=== PATIENT | male | born 1980 | race Caucasian/White ===

== ENCOUNTER 2017-12-26 21:58 | Inpatient (IN) | payer OTHER ==
[~2017-12-26] VITALS: Ht 182.9 cm; Wt 114.0 kg
[2017-12-26] MEDS ORDERED: SODIUM CHLORIDE 0.9% 1000ML 1,000 ML IV STA (22:35)
[2017-12-26] MEDS ORDERED: CEFTRIAXONE SOD INJ 2,000 MG in DEXTROSE 5% 50ML 50 ML IV STA (22:35)
[2017-12-26] MEDS ORDERED: PHEN-582 PO (22:49)
[2017-12-26] MEDS ORDERED: [UNRECOGNIZED DRUG - OTHER] PO (22:51)
--- NOTE | 2017-12-26 22:51 | DIAGNOSTIC IMAGING REPORT ---
HEAD WITHOUT CONTRAST (CT) CLINICAL HISTORY: 37 years-old Male presenting with eval for altered loc. TECHNIQUE: Multidetector CT imaging of the head was performed without the use of intravenous contrast. IV contrast: None. A dose lowering technique was used consistent with the principles of ALARA (as low as reasonably achievable). COMPARISON: None. CT DOSE (mGy.cm): The estimated cumulative dose is 741.55 mGycm. FINDINGS: Supervisor Quality Control topogram: Unremarkable. Ventricles and sulci normal in size. Brain parenchyma normal in appearance with preserved pelaez-white differentiation. No mass effect or midline shift. No hemorrhage or acute territorial infarct. No extra-axial fluid collection. Paranasal sinuses and mastoid air cells clear. Calvarium intact. IMPRESSION: 1. No acute intracranial abnormality. Electronically signed by: Amandeep Becerra M.D. 12/26/2017 10:49 PM Dictated Date/Time: 12/26/2017 10:48 PM
[2017-12-26] MEDS ORDERED: ALLO100T PO (22:54)
[2017-12-26 23:11] LABS: BASO % 0.3 %; BASO ABS # 0.02 K/uL (0-0.2); EOS % 0.3 %; EOS ABS # 0.02 K/uL (0-0.5); HEMATOCRIT 48.1 % (42-52); HEMOGLOBIN 17.6 g/dL (14.0-18.0); IG# 0.01 K/uL (0.00-0.02); LYMPH % 25.3 %; MEAN CELL VOLUME 88.1 fL (80-100); MEAN CORPUSCULAR HEMOGLOBIN 32.2 pg (25-34); MEAN CORPUSCULAR HGB CONC 36.6 g/dl (32-36); MEAN PLATELET VOLUME 10.7 fL (7.4-10.4); MONO % 6.1 %; MONO ABS # 0.48 K/uL (0.11-0.59); NEUT % 67.9 %; NEUT ABS # 5.36 K/uL (1.4-6.5); PLATELET COUNT 223 K/uL (130-400); RED CELL DISTRIBUTION WIDTH CV 12.3 % (11.5-14.5); WHITE BLOOD COUNT 7.89 K/uL (4.8-10.8)
[2017-12-26 23:17] LABS: BLOOD UREA NITROGEN 13 mg/dl (7-18); CALCIUM 9.6 mg/dl (8.5-10.1); CARBON DIOXIDE 25 mmol/L (21-32); CREATININE 1.29 mg/dl (0.60-1.40); GLUCOSE 122 mg/dl (70-99); POTASSIUM 3.7 mmol/L (3.5-5.1); SODIUM 136 mmol/L (136-145)
[2017-12-26 23:21] LABS: ALKALINE PHOSPHATASE 77 U/L (45-117); ALT/SGPT 130 U/L (12-78); AST/SGOT 76 U/L (15-37); TOTAL PROTEIN 9.7 gm/dl (6.4-8.2)
[2017-12-26 23:24] LABS: PTT PATIENT 27.7 SECONDS (21.0-31.0)
[2017-12-26] MEDS ORDERED: ACYCLOVIR SOD IV STA (23:27)
[2017-12-26] MEDS ORDERED: DEXTROSE 5% IV STA (23:27)
--- NOTE | 2017-12-26 23:29 | EMERGENCY ROOM VISIT NOTE ---
History Report prepared by Rhonda: Danika White Under the Supervision of: Dr. Joe Briscoe M.D. First contact with patient: 22:25 Chief Complaint: ALTERED MENTAL STATUS Stated Complaint: ALTERED MENTAL STATUS Nursing Triage Summary: pt arrives via ALS for altered mental status his arrives home to find him in the bathtub trying to put his kids clothes on per patient was diagnosed with the flu last week and he has been taking tylenol cold and flu all week long pt states name and birthday correctly, starts to slur words after that states "my birthday [birth year] "It's " pt reports no pain, pt unable to identify objects on stroke picture board makes nonsensical statements History of Present Illness The patient is a 37 year old male who presents to the Emergency Room with complaints of an episode of altered mental status starting today. The patient's states that she found him lying in their daughter's bed when she got home from work 3 hours ago. She reports that he was not like this yesterday or this morning. She states that he has been sick with the flu for a week. She states that he has had a fever, cough, and been weak. She states that she is unsure if he had a fever today, but states that he did yesterday. She notes that he has been taking over the counter Tylenol cold and flu. The notes that his face seems different. She reports that his eyes seem off. The patient denies falling , having a headache, and neck pain. Source of History: spouse/significant other Onset: today Position: other (global) Quality: other (altered) Timing: other (episode) Associated Symptoms: + fevers, + cough, + weakness, No headache, No neck pain Note: The patient's complains of the patient's face and eyes being off. Review of Systems See HPI for pertinent positives & negatives. A total of 10 systems reviewed and were otherwise negative. Past Medical & Surgical Medical Problems: (1) Gout Old medical records were reviewed. Nurse's notes were reviewed and I agree with. Family History Diabetes mellitus Social History Smoking Status: Never Smoker Drug Use: none Marital Status: Housing Status: lives with family Occupation Status: employed Current/Historical Medications Scheduled Allopurinol (Zyloprim), 100 MG PO DAILY Miscellaneous Medications [id number]-[id number] W/ Apap (Tylenol Cold & Flu Severe), Unknown Dose PO Allergies Uncoded Allergies: PCN (Allergy, Unknown, allergic reaction, 01/02/13) Physical Exam Vital Signs Date Time Temp Pulse Resp B/P (MAP) Pulse Ox O2 Delivery O2 Flow Rate FiO2 12/27/17 02:33 113 12/27/17 01:55 37.7 114 20 153/96 95 Room Air 12/27/17 01:10 112 20 133/106 94 Room Air 12/27/17 00:00 143/95 97 Room Air 12/26/17 23:55 108 24 12/26/17 23:30 150/101 12/26/17 23:14 161/96 12/26/17 22:55 121 19 96 12/26/17 22:55 113 16 153/114 97 Room Air 12/26/17 22:36 113 12/26/17 22:34 118 16 146/101 96 Room Air 12/26/17 22:25 113 12/26/17 22:02 37.0 105 16 152/104 98 Room Air Physical Exam General: Non-ill appearing young male in no acute distress. When he talks he answers some questions appropriately, but others are nonsensical. Has some aphasia. HEENT: Normal cephalic atraumatic. Pupils are equal round and reactive to light. Extraocular movements are intact. Oropharynx is pink with moist mucous membranes. No swelling of the mouth lips or tongue. Neck: Supple with a midline trachea. No meningeal signs or stiffness, no JVD or bruits. No Stridor. Chest: Clear to auscultation bilaterally. No wheezes or rhonchi. No increased work of breathing. Heart: regular rate and rhythm. Abdomen: Soft nontender, nondistended without rebound guarding or rigidity. Extremities: No cyanosis clubbing or edema. No calf tenderness or assymetry Spine/Back. Non tender to palpation. No CVA tenderness Skin: Good turgor without rashes. Neurologic exam: Cranial nerves two through 12 are intact. Motor and sensation are intact and symmetrical throughout. Negative Kernig and Brudzinski signs. Medical Decision & Procedures ER Provider Diagnostic Interpretation: Radiology results as stated below per my review and radiologist interpretation: HEAD WITHOUT CONTRAST (CT) CLINICAL HISTORY: 37 years-old Male presenting with eval for altered loc. TECHNIQUE: Multidetector CT imaging of the head was performed without the use of intravenous contrast. IV contrast: None. A dose lowering technique was used consistent with the principles of ALARA (as low as reasonably achievable). COMPARISON: None. CT DOSE (mGy.cm): The estimated cumulative dose is 741.55 mGycm. FINDINGS: Worker'S Compensation Claims Examiner topogram: Unremarkable. Ventricles and sulci normal in size. Brain parenchyma normal in appearance with preserved pelaez-white differentiation. No mass effect or midline shift. No hemorrhage or acute territorial infarct. No extra-axial fluid collection. Paranasal sinuses and mastoid air cells clear. Calvarium intact. IMPRESSION: 1. No acute intracranial abnormality. Electronically signed by: Amandeep Becerra M.D. 12/26/2017 10:49 PM Dictated Date/Time: 12/26/2017 10:48 PM CHEST X-RAY: The results were interpreted by me. Cardiomegaly. Poor inspiratory effort. No definite infiltrate. No definite CHF. Laboratory Results 12/26/17 21:33 Red Blood Count 5.46, Mean Corpuscular Volume 88.1, Mean Corpuscular Hemoglobin 32.2, Mean Corpuscular Hemoglobin Concent 36.6, Mean Platelet Volume 10.7, Neutrophils (%) (Auto) 67.9, Lymphocytes (%) (Auto) 25.3, Monocytes (%) (Auto) 6.1, Eosinophils (%) (Auto) 0.3, Basophils (%) (Auto) 0.3, Neutrophils # (Auto) 5.36, Lymphocytes # (Auto) 2.00, Monocytes # (Auto) 0.48, Eosinophils # (Auto) 0.02, Basophils # (Auto) 0.02 12/26/17 21:33 Test 12/26/17 21:33 12/26/17 22:35 12/26/17 22:58 12/26/17 22:59 White Blood Count 7.89 K/uL (4.8-10.8) Red Blood Count 5.46 M/uL (4.7-6.1) Hemoglobin 17.6 g/dL (14.0-18.0) Hematocrit 48.1 % (42-52) Mean Corpuscular Volume 88.1 fL (80-100) Mean Corpuscular Hemoglobin 32.2 pg (25-34) Mean Corpuscular Hemoglobin Concent 36.6 g/dl (32-36) Platelet Count 223 K/uL (130-400) Mean Platelet Volume 10.7 fL (7.4-10.4) Neutrophils (%) (Auto) 67.9 % Lymphocytes (%) (Auto) 25.3 % Monocytes (%) (Auto) 6.1 % Eosinophils (%) (Auto) 0.3 % Basophils (%) (Auto) 0.3 % Neutrophils # (Auto) 5.36 K/uL (1.4-6.5) Lymphocytes # (Auto) 2.00 K/uL (1.2-3.4) Monocytes # (Auto) 0.48 K/uL (0.11-0.59) Eosinophils # (Auto) 0.02 K/uL (0-0.5) Basophils # (Auto) 0.02 K/uL (0-0.2) RDW Standard Deviation 39.0 fL (36.4-46.3) RDW Coefficient of Variation 12.3 % (11.5-14.5) Immature Granulocyte % (Auto) 0.1 % Immature Granulocyte # (Auto) 0.01 K/uL (0.00-0.02) Prothrombin Time 10.8 SECONDS (9.0-12.0) Prothromb Time International Ratio 1.0 (0.9-1.1) Activated Partial Thromboplast Time 27.7 SECONDS (21.0-31.0) Partial Thromboplastin Ratio 1.1 Anion Gap 9.0 mmol/L (3-11) Est Creatinine Clear Calc Drug Dose 93.0 ml/min Estimated GFR () 82.1 Estimated GFR (Non- 70.9 BUN/Creatinine Ratio 9.8 (10-20) Calcium Level 9.6 mg/dl (8.5-10.1) Total Bilirubin 1.5 mg/dl (0.2-1) Direct Bilirubin 0.2 mg/dl (0-0.2) Aspartate Amino Transf (AST/SGOT) 76 U/L (15-37) Alanine Aminotransferase (ALT/SGPT) 130 U/L (12-78) Alkaline Phosphatase 77 U/L (45-117) Total Creatine Kinase 109 U/L (39-308) Creatine Kinase MB < 0.5 ng/ml (0.5-3.6) Total Protein 9.7 gm/dl (6.4-8.2) Albumin 4.4 gm/dl (3.4-5.0) Lipase 146 U/L (73-393) Salicylates Level < 1.7 mg/dl (2.8-20) Acetaminophen Level < 2 ug/ml (10-30) Creatine Kinase MB Ratio (0-3.0) Influenza Type A Antigen Neg for Influ A (NEG) Influenza Type B Antigen Neg for Influ B (NEG) Bedside Glucose 110 mg/dl (70-99) Ethyl Alcohol mg/dL < 3.0 mg/dl (0-3) Test 12/26/17 23:00 12/26/17 23:17 Bedside Lactic Acid Venous 1.84 mmol/L (0.90-1.70) Bedside Troponin I < 0.030 ng/ml (0-0.045) Laboratory studies as stated above per my review. Medications Administered Medications (Trade) Dose Ordered Sig/Angeli Route Start Time Stop Time Status Last Admin Dose Admin Sodium Chloride 1,000 ml @ 999 mls/hr Q1H1M STAT IV 12/26/17 22:35 12/26/17 23:35 DC 12/26/17 23:12 999 MLS/HR Ceftriaxone Sodium 2000 mg/ Dextrose 70 ml @ 100 mls/hr ONE STAT IV 12/26/17 22:35 12/26/17 23:16 DC 12/26/17 23:08 100 MLS/HR Acyclovir Sodium 660 mg/Dextrose 113.2 ml @ 100 mls/hr NOW STAT IV 12/26/17 23:27 12/27/17 00:34 DC 12/26/17 23:46 100 MLS/HR Lorazepam (Ativan Inj) 1 mg NOW STAT IV 12/27/17 00:49 12/27/17 00:50 DC 12/27/17 01:07 1 MG Lorazepam (Ativan Inj) 1 mg NOW STAT IV 12/27/17 01:31 12/27/17 01:32 DC 12/27/17 01:31 1 MG ECG Indication: altered mental status Rate (beats per minute): 121 Rhythm: sinus tachycardia Findings: no acute ischemic change, other (left anterior vesicular block, no prolongation of QT) Comparison ECG Date: no prior available ED Course 2226: Past medical records reviewed. The patient was evaluated in room A9B, and a complete history and physical examination were performed. 2235: Ordered Ceftriaxone Sodium 2000 mg/ Dextrose 70 ml @ 100 mls/hr IV, NSS 1000 ml @ 999 mls/hr IV. 2309: I discussed the patient's case with Dr. Díaz -[place] Neurosurgeon. He is going to evaluate the patient through the telecom. 2327: Acyclovir Sodium 660 mg/ Dextrose 113.2 ml @ 100 mls/hr IV. 0002: I spoke to Dr. Díaz and he thinks it is stroke verse some sort of encephalopathy. He wants an MRI first and then LP if need be. 0004: I reevaluated the patient and he is intermittently acting a little better. 0043: I reevaluated the patient and he seemed better, but then would say something strange. 0049: Ordered Ativan Inj 1 mg IV. 0131: Ordered Ativan Inj 1 mg IV. 0132: I reevaluated the patient and I talked to the . They are giving him more Ativan. Medical Decision Differential diagnoses include CVA, encephalitis, meningitis, influenza, herpetic infection, toxicologic, electrolyte abnormality, metabolic abnormality. This patient comes in as described above. He was found by his at 7:30 PM after acting confused. He does not look ill however when he talks he has confusion. He answers yes no questions but when I ask him point questions he gets a lot of them wrong but some of them right. He does have some word finding issues too. He has no other neurologic deficits. He's had flulike symptoms for several days although is afebrile here he did have a fever yesterday. He's been taking [id number] medications. He has no meningeal signs or stiffness. He is moderately hypertensive and tachycardic but afebrile. IV access established blood sugar was checked on route and was normal. Given his symptoms, I did call a stroke alert. My initial concerns for stroke or central neurologic process additionally infectious and toxicologic etiologies. His does not think there was any intentional overdose but it could be related siml-nun-uqelvlo medications. I initially ordered IV Rocephin to cover the possibility of infection and I also ordered IV acyclovir to cover the possibility of a DIRECTOR OF SOCIAL WORK infection from herpes. I did have Dr. Davis, the stroke neurologist evaluate him in the meantime. His white count is not elevated. He has no significant electrode or metabolic abnormality. The CAT scan his head is unremarkable. His Tylenol and aspirin levels are negative. Dr Clifton wants me to get an MRI tonight. I did order MRI with and without contrast. The patient was given Ativan 1 mg prior to this. During my reevaluation, he does answer some questions appropriately but others not. At times, I think he is getting better but it's difficult to say. He would not tolerate the MRI was given additional Ativan 1 mg and brought back over here. I discussed with his . We are going to give him a little more benzodiazepines with Versed and it will be shorter acting. This may be more medication related at times he's picking at things that sometimes cc with dextromethorphan. At this point were still evaluating for central neurologic process or infection as well. The patient will be signed out to Dr. Peña at shift change will follow-up on MRI results and he will likely need to be admitted for further treatment and evaluation. Medication Reconcilliation Current Medication List: was personally reviewed by me Blood Pressure Screening Patient's blood pressure: Elevated blood pressure Blood pressure disposition: Elevated BP felt to be situational Consults Time Called: 2301 Consulting Physician: Dr. Arjun Garduno Neurosurgeon Returned Call: [phone] I discussed the patient's case with Dr. Arjun Garduno Neurosurgeon. He is going to evaluate the patient through the telecom. Impression Primary Impression: Altered mental status Additional Impression: Aphasia Critical Care I have personally spent greater than 60 minutes of critical care time in the direct management of this patient. This includes bedside care, interpretation of diagnostic studies, and testing, discussion with consultants, patient, and family members, and other required patient management activities. This 60 minutes is in excess of all separately billable procedures. Scribe Attestation The scribe's documentation has been prepared under my direction and personally reviewed by me in its entirety. I confirm that the note above accurately reflects all work, treatment, procedures, and medical decision making performed by me. Departure Information Patient Instructions My [facility] Stroke History Time Last Known Well this morning Stroke t-PA Criteria Reviewed Does NOT meet criteria for t-PA Reason t-PA Not Given Treatment not indicated Problem Qualifiers
[2017-12-26 23:35] LABS: ALBUMIN 4.4 gm/dl (3.4-5.0); CKMB < 0.5 ng/ml (0.5-3.6); LIPASE 146 U/L (73-393)
[2017-12-26 23:46] LABS: INFLUENZA B ANTIGEN Neg for Influ B (NEG)
[2017-12-27] MEDS ORDERED: LORAZEPAM 2 MG/ML 1 ML VIAL IV STA ×2 (00:49→01:31)
[2017-12-27] MEDS ORDERED: MIDAZOLAM HCL 1 MG/ML 2ML VIAL IV STA (02:07)
[2017-12-27 05:13] LABS: INFLUENZA A PCR Neg for Influ A (NEG); INFLUENZA B PCR Neg for Influ B (NEG)
[2017-12-27] MEDS ORDERED: ONDANSETRON INJ 2 MG/ML 2 ML VIAL IV PRN (06:00)
[2017-12-27] MEDS ORDERED: PHARMACIST DISCHARGE MED REC CONSULT PRN (06:00)
[2017-12-27] MEDS ORDERED: VANCOMYCIN INJ 2,500 MG in SODIUM CHLORIDE 0.9% 500ML 500 ML IV STA (06:14)
--- NOTE | 2017-12-27 06:31 | History and Physical ---
History & Physical Date & Time of Service: Dec 27, 2017 at 06:09 Chief Complaint: Altered Mental Status Primary Care Physician: Shorty Be M.D.(LUZ) History of Present Illness Source: patient, clinic records, hospital records 37 yo M with AMS presents with who told ER staff that he was acting funny and she knows he was taking Tylenol Cold And flu for a recent cold. The states that she efound him lying in hteir daughter's bed when she got home from work. She states that he was sick with the flu for the last week but that he was normal yesterdya. She reported weakness, fever and cough. She reported to staff that he had no falls at home, no headache and no neck pain. The patient was more calm when I saw him after some Ativan and Versed in preparation for an MRI that was unsuccessful. He was unable to get a history from because of altered mental status and inability to follow instruction. When the patient arrived in the ER he wsa thought to have some expressive aphasia so a stroke alert was called by the ER staff. A CT head was negative for acute IC abnormality. Labwork revealed a mild LUZ ELENA wtih creat around 1.4 and baseline around 0.9. No TPA was indicated per the Neurologist, however, he was sent for an MRI that was unable to be completed because the patient was too combative and agitated. With the personality changes, there was some concern for possible encephalitis, however, the ER providers were more convinced this was similar to a dextromethorphan overdose. Empiric coverage with Acyclovir and Ceftriaxone was started in the ER. Past Medical/Surgical History Medical Problems: (1) Gout Status: Chronic (2) BARB (obstructive sleep apnea) Status: Chronic Family History Diabetes mellitus Family history was reviewed from the records as the patient was unable to give this information 2/2 AMS. Social History Socail history was reviewed from the records as the patient was unable to give this information 2/2 AMS. Smoking Status: Never Smoker Smokeless Tobacco Use: Unknown Alcohol Use: Drug Use: none Marital Status: Occupational Status: employed Immunizations History of Influenza Vaccine: No History of Tetanus Vaccine?: Yes Tetanus Immunization Date: Feb 01, 2011 History of Pneumococcal: No History of Hepatitis B Vaccine: Yes Hepatitis Immunization Date: Apr 29, 1977 Multi-Drug Resistant Organisms History of MDRO: No Allergies Uncoded Allergies: PCN (Allergy, Unknown, allergic reaction, 01/02/13) Home Medications Scheduled Allopurinol (Zyloprim), 100 MG PO DAILY Miscellaneous Medications [id number]-Pq W/ Apap (Tylenol Cold & Flu Severe), Unknown Dose PO Review of Systems ROS was unable to be obtained as the patient was unable to give this information 12/20 AMS. Physical Exam Vital Signs Date Time Temp Pulse Resp B/P (MAP) Pulse Ox O2 Delivery O2 Flow Rate FiO2 12/27/17 04:34 112 18 128/89 94 Room Air 12/27/17 03:18 109 22 135/105 96 Room Air 12/27/17 03:05 114 95 Room Air 12/27/17 03:00 107 24 94 Room Air 12/27/17 02:40 118 20 95 Room Air 12/27/17 02:35 107 12/27/17 02:33 113 12/27/17 02:01 141/102 12/27/17 01:55 37.7 114 20 153/96 95 Room Air 12/27/17 01:54 153/96 12/27/17 01:10 112 20 133/106 94 Room Air 12/27/17 01:07 133/106 12/27/17 01:00 157/117 12/27/17 00:35 114 34 95 12/27/17 00:30 146/108 12/27/17 00:05 111 27 12/27/17 00:00 143/95 97 Room Air 12/26/17 23:55 108 24 12/26/17 23:30 150/101 12/26/17 23:14 161/96 12/26/17 22:55 121 19 96 12/26/17 22:55 113 16 153/114 97 Room Air 12/26/17 22:36 113 12/26/17 22:34 118 16 146/101 96 Room Air 12/26/17 22:25 113 12/26/17 22:02 37.0 105 16 152/104 98 Room Air General Appearance: no apparent distress, + obese, + pertinent finding (very limited physical as patient unable to follow instruction. ) Head: normocephalic, atraumatic Eyes: normal inspection, PERRL, sclerae normal ENT: hearing grossly normal, + pertinent finding (pt refused to open mouth) Neck: supple, trachea midline Respiratory/Chest: lungs clear, normal breath sounds, no respiratory distress, no accessory muscle use Cardiovascular: no edema, no gallop, no JVD, no murmur, normal peripheral pulses, + tachycardia Abdomen/GI: normal bowel sounds, non tender, soft Extremities/Musculoskelatal: normal inspection, normal range of motion, + pertinent finding (able to moves arms, legs, hands and feet symmetrically) Neurologic/Psych: alert, + pertinent finding (awake with some word finding difficulty and babbling. Stares ahead and answers questions with answers that don't make sense. Knows name and that he is in the hospital but otherwise is disoriented. Combative.) Skin: normal color, warm/dry Diagnostics Laboratory Results 12/26/17 21:33 Red Blood Count 5.46, Mean Corpuscular Volume 88.1, Mean Corpuscular Hemoglobin 32.2, Mean Corpuscular Hemoglobin Concent 36.6, Mean Platelet Volume 10.7, Neutrophils (%) (Auto) 67.9, Lymphocytes (%) (Auto) 25.3, Monocytes (%) (Auto) 6.1, Eosinophils (%) (Auto) 0.3, Basophils (%) (Auto) 0.3, Neutrophils # (Auto) 5.36, Lymphocytes # (Auto) 2.00, Monocytes # (Auto) 0.48, Eosinophils # (Auto) 0.02, Basophils # (Auto) 0.02 12/26/17 21:33 Test 12/26/17 21:33 12/26/17 22:35 12/26/17 22:48 12/26/17 22:58 White Blood Count 7.89 K/uL (4.8-10.8) Red Blood Count 5.46 M/uL (4.7-6.1) Hemoglobin 17.6 g/dL (14.0-18.0) Hematocrit 48.1 % (42-52) Mean Corpuscular Volume 88.1 fL (80-100) Mean Corpuscular Hemoglobin 32.2 pg (25-34) Mean Corpuscular Hemoglobin Concent 36.6 g/dl (32-36) Platelet Count 223 K/uL (130-400) Mean Platelet Volume 10.7 fL (7.4-10.4) Neutrophils (%) (Auto) 67.9 % Lymphocytes (%) (Auto) 25.3 % Monocytes (%) (Auto) 6.1 % Eosinophils (%) (Auto) 0.3 % Basophils (%) (Auto) 0.3 % Neutrophils # (Auto) 5.36 K/uL (1.4-6.5) Lymphocytes # (Auto) 2.00 K/uL (1.2-3.4) Monocytes # (Auto) 0.48 K/uL (0.11-0.59) Eosinophils # (Auto) 0.02 K/uL (0-0.5) Basophils # (Auto) 0.02 K/uL (0-0.2) RDW Standard Deviation 39.0 fL (36.4-46.3) RDW Coefficient of Variation 12.3 % (11.5-14.5) Immature Granulocyte % (Auto) 0.1 % Immature Granulocyte # (Auto) 0.01 K/uL (0.00-0.02) Prothrombin Time 10.8 SECONDS (9.0-12.0) Prothromb Time International Ratio 1.0 (0.9-1.1) Activated Partial Thromboplast Time 27.7 SECONDS (21.0-31.0) Partial Thromboplastin Ratio 1.1 Anion Gap 9.0 mmol/L (3-11) Est Creatinine Clear Calc Drug Dose 93.0 ml/min Estimated GFR () 82.1 Estimated GFR (Non- 70.9 BUN/Creatinine Ratio 9.8 (10-20) Calcium Level 9.6 mg/dl (8.5-10.1) Total Bilirubin 1.5 mg/dl (0.2-1) Direct Bilirubin 0.2 mg/dl (0-0.2) Aspartate Amino Transf (AST/SGOT) 76 U/L (15-37) Alanine Aminotransferase (ALT/SGPT) 130 U/L (12-78) Alkaline Phosphatase 77 U/L (45-117) Total Creatine Kinase 109 U/L (39-308) Creatine Kinase MB < 0.5 ng/ml (0.5-3.6) Total Protein 9.7 gm/dl (6.4-8.2) Albumin 4.4 gm/dl (3.4-5.0) Lipase 146 U/L (73-393) Salicylates Level < 1.7 mg/dl (2.8-20) Acetaminophen Level < 2 ug/ml (10-30) Creatine Kinase MB Ratio (0-3.0) Influenza Type A (RT-PCR) Neg for Influ A (NEG) Influenza Type B (RT-PCR) Neg for Influ B (NEG) Influenza Type A Antigen Neg for Influ A (NEG) Influenza Type B Antigen Neg for Influ B (NEG) Test 12/26/17 22:59 12/26/17 23:00 12/26/17 23:17 12/27/17 05:42 Bedside Glucose 110 mg/dl (70-99) Ethyl Alcohol mg/dL < 3.0 mg/dl (0-3) Bedside Lactic Acid Venous 1.84 mmol/L (0.90-1.70) Bedside Troponin I < 0.030 ng/ml (0-0.045) Urine Opiates Screen NEG (NEG) Urine Methadone, Qualitative NEG (NEG) Urine Barbiturates NEG (NEG) Urine Phencyclidine (PCP) Level NEG (NEG) Ur Amphetamine/Methamphetamine NEG (NEG) MDMA (Ecstasy) Screen NEG (NEG) Urine Benzodiazepines Screen POS (NEG) Urine Cocaine Metabolite NEG (NEG) Urine Marijuana (THC) NEG (NEG) Date/Time Source Procedure Growth Status 12/26/17 22:59 Blood Blood Culture Pending Received Results Past 24 Hours Test 12/26/17 21:33 12/26/17 22:35 12/26/17 22:48 12/26/17 22:58 Range/Units White Blood Count 7.89 4.8-10.8 K/uL Red Blood Count 5.46 4.7-6.1 M/uL Hemoglobin 17.6 14.0-18.0 g/dL Hematocrit 48.1 42-52 % Mean Corpuscular Volume 88.1 80-100 fL Mean Corpuscular Hemoglobin 32.2 25-34 pg Mean Corpuscular Hemoglobin Concent 36.6 32-36 g/dl Platelet Count 223 130-400 K/uL Mean Platelet Volume 10.7 7.4-10.4 fL Neutrophils (%) (Auto) 67.9 % Lymphocytes (%) (Auto) 25.3 % Monocytes (%) (Auto) 6.1 % Eosinophils (%) (Auto) 0.3 % Basophils (%) (Auto) 0.3 % Neutrophils # (Auto) 5.36 1.4-6.5 K/uL Lymphocytes # (Auto) 2.00 1.2-3.4 K/uL Monocytes # (Auto) 0.48 0.11-0.59 K/uL Eosinophils # (Auto) 0.02 0-0.5 K/uL Basophils # (Auto) 0.02 0-0.2 K/uL RDW Standard Deviation 39.0 36.4-46.3 fL RDW Coefficient of Variation 12.3 11.5-14.5 % Immature Granulocyte % (Auto) 0.1 % Immature Granulocyte # (Auto) 0.01 0.00-0.02 K/uL Prothrombin Time 10.8 9.0-12.0 SECONDS Prothromb Time International Ratio 1.0 0.9-1.1 Activated Partial Thromboplast Time 27.7 21.0-31.0 SECONDS Partial Thromboplastin Ratio 1.1 Sodium Level 136 136-145 mmol/L Potassium Level 3.7 3.5-5.1 mmol/L Chloride Level 102 98-107 mmol/L Carbon Dioxide Level 25 21-32 mmol/L Anion Gap 9.0 3-11 mmol/L Blood Urea Nitrogen 13 7-18 mg/dl Creatinine 1.29 0.60-1.40 mg/dl Est Creatinine Clear Calc Drug Dose 93.0 ml/min Estimated GFR () 82.1 Estimated GFR (Non- 70.9 BUN/Creatinine Ratio 9.8 10-20 Random Glucose 122 70-99 mg/dl Calcium Level 9.6 8.5-10.1 mg/dl Total Bilirubin 1.5 0.2-1 mg/dl Direct Bilirubin 0.2 0-0.2 mg/dl Aspartate Amino Transf (AST/SGOT) 76 15-37 U/L Alanine Aminotransferase (ALT/SGPT) 130 12-78 U/L Alkaline Phosphatase 77 45-117 U/L Total Creatine Kinase 109 39-308 U/L Creatine Kinase MB < 0.5 0.5-3.6 ng/ml Creatine Kinase MB Ratio 0-3.0 Total Protein 9.7 6.4-8.2 gm/dl Albumin 4.4 3.4-5.0 gm/dl Lipase 146 73-393 U/L Salicylates Level < 1.7 2.8-20 mg/dl Acetaminophen Level < 2 10-30 ug/ml Influenza Type A (RT-PCR) Neg for Influ A NEG Influenza Type B (RT-PCR) Neg for Influ B NEG Influenza Type A Antigen Neg for Influ A NEG Influenza Type B Antigen Neg for Influ B NEG Test 12/26/17 22:59 12/26/17 23:00 12/26/17 23:17 12/27/17 05:42 Range/Units Bedside Glucose 110 70-99 mg/dl Ethyl Alcohol mg/dL < 3.0 0-3 mg/dl Bedside Lactic Acid Venous 1.84 0.90-1.70 mmol/L Bedside Troponin I < 0.030 0-0.045 ng/ml Test 12/27/17 06:04 Range/Units Microbiology Results 12/26/17 Blood Culture, Received Pending 12/26/17 Blood Culture, Received Pending Diagnostic Radiology CXR-negative (wet read) HEAD WITHOUT CONTRAST (CT) CLINICAL HISTORY: 37 years-old Male presenting with eval for altered loc. TECHNIQUE: Multidetector CT imaging of the head was performed without the use of intravenous contrast. IV contrast: None. A dose lowering technique was used consistent with the principles of ALARA (as low as reasonably achievable). COMPARISON: None. CT DOSE (mGy.cm): The estimated cumulative dose is 741.55 mGycm. FINDINGS: Oxygen Therapy Technician topogram: Unremarkable. Ventricles and sulci normal in size. Brain parenchyma normal in appearance with preserved pelaez-white differentiation. No mass effect or midline shift. No hemorrhage or acute territorial infarct. No extra-axial fluid collection. Paranasal sinuses and mastoid air cells clear. Calvarium intact. IMPRESSION: 1. No acute intracranial abnormality. EKG tachy, LAFB, no ST changes Impression Assessment and Plan 37 yo otherwise healthy male presents with acute altered mental status today after one week of cold symptoms and taking Tylenol cold and flu consistently 1. AMS-uncertain etiology with causes including but not limited to dextromethorphan overdose, HSV encephalitis or other encephalitis/meningitis, stroke. He is combative and requires benzos and a sitter. Will add statin, ASA and consult Neuro. Will re-attempt MRI when patient is less confused. Cont empiric Ceftriaxone, Vanc and Acyclovir for coverage of encephalitis and meningitis. If pt doesn't improve in the next few hours, would consider LP. Will monitor on telemetry until improved. AM labs could not be obtained // patient's combativeness. Uncertain ETOH use which is another possibility. Drug screen and urine studies are also pending. 2. LUZ ELENA-giving IVF and repeat PRP in am. 3. Gout-holding allopurinol to minimize PO intake. 4. BARB-uncertain if patient is on CPAP. Will need to address with during day shift. DVT proph-SCDs Full Code Dispo-to telemetry DO [facility] Level of Care Telemetry Resuscitation Status FULL RESUSCITATION VTE Prophylaxis VTE Risk Assessment Done? Y/N: Yes Risk Level: Low Given or contraindicated: SCD's
--- NOTE | 2017-12-27 07:22 | DIAGNOSTIC IMAGING REPORT ---
SINGLE VIEW CHEST CLINICAL HISTORY: Atypical chest pain. Change in mental status. FINDINGS: An AP, portable, upright chest radiograph is obtained. No prior studies are available for comparison at the time of dictation. The examination is degraded by portable technique, large body habitus, and patient rotation. The heart is top normal for projection. The pulmonary vasculature is noncongested. The lungs and pleural spaces are clear. No pneumothorax is seen. The bony thorax is grossly intact. IMPRESSION: No acute cardiopulmonary abnormality. Electronically signed by: Robby Espitia M.D. 12/27/2017 7:20 AM Dictated Date/Time: 12/27/2017 7:19 AM
[2017-12-27] MEDS ORDERED: ACYCLOVIR CONSULT ACTIVE PRN (08:37)
[2017-12-27] MEDS ORDERED: CEFTRIAXONE CONSULT PHARMACY PRN (08:45)
[2017-12-27 09:00] VITALS: BP 130/88; PULSE 99; TEMP 37.4; O2SAT 99; Ht 182.9 cm; Wt 114.0 kg
[2017-12-27] MEDS ORDERED: VANCOMYCIN CONSULT ACTIVE PRN (09:00)
[2017-12-27] MEDS ORDERED: DEXTROSE 5% IV SCH (10:00)
[2017-12-27] MEDS ORDERED: ACYCLOVIR SOD IV SCH (10:00)
[2017-12-27] MEDS: ASPIRIN 81 MG ECTAB PO SCH (10:31)
[2017-12-27] MEDS: ATORVASTATIN 40 MG TAB PO SCH (10:32)
[2017-12-27 12:00] VITALS: BP 153/81; PULSE 90; TEMP 37.2; O2SAT 95
[2017-12-27] MEDS: CEFTRIAXONE SOD INJ 2000 MG in DEXTROSE 5% 50ML IV SCH (12:00)
[2017-12-27] MEDS ORDERED: INFLUENZA ADMINISTRATION CHARGE ONE (12:00)
[2017-12-27] MEDS ORDERED: INFLUENZA VIRUS QUAD VACCINE 0.5 ML SYR IM. ONE (12:00)
--- NOTE | 2017-12-27 12:14 | DIAGNOSTIC IMAGING REPORT ---
FLUOROSCOPICALLY GUIDED DIAGNOSTIC LUMBAR PUNCTURE CLINICAL HISTORY: altered mental status, fever, aphasia COMPARISON STUDY: No previous studies for comparison. FINDINGS: Consent was obtained from the patient's . The risks the procedure were explained to the patient and his . The patient was prepped and draped in sterile fashion. The skin was anesthetized with 1% lidocaine. Under fluoroscopic guidance, a lumbar puncture was performed at the L3-4 level utilizing a 20-gauge spinal needle. 8 cc of clear CSF was withdrawn under gravity drip. The fluid was 4 tubes and sent for laboratory analysis as specified by the referring clinician. There were no immediate complications. IMPRESSION: Successful fluoroscopically guided diagnostic lumbar puncture performed at the L3-4 level. 8 cc of clear CSF was withdrawn and sent for laboratory analysis. Electronically signed by: Juan Carlos Nolan M.D. 12/27/2017 12:13 PM Dictated Date/Time: 12/27/2017 12:11 PM
[2017-12-27 12:17] LABS: CSF GLUCOSE 66 mg/dl (40-70); CSF TOTAL PROTEIN 77.8 mg/dl (15.0-45.0)
--- NOTE | 2017-12-27 12:21 | Pharmacy Progress Note ---
Pharmacy Abx Initial Consult Date of Service Dec 27, 2017. Pharmacy Dosing Scope Date of Consult: 12/27/17 Consultation requested by: Dr. Barron Pharmacy is consulted to initiate Vancomycin, Ceftriaxone, and Acyclovir IV dosing therapy, order appropriate labs and adjust drug dose/frequency. Subjective The patient is a 37 year old male admitted on Dec 27, 2017 at 03:44. Objective Height (Feet): 6 Height (Inches): 0.00 Weight (Kilograms): 114.300 Vital Signs (Past 12Hrs) Vital Signs Past 12 Hours Date Time Temp Pulse Resp B/P (MAP) Pulse Ox O2 Delivery O2 Flow Rate FiO2 12/27/17 09:00 37.4 99 20 130/88 99 Room Air 12/27/17 07:42 122 16 134/98 100 Room Air 12/27/17 06:34 115 18 150/97 96 Room Air 12/27/17 04:34 112 18 128/89 94 Room Air 12/27/17 03:18 109 22 135/105 96 Room Air 12/27/17 03:05 114 95 Room Air 12/27/17 03:00 107 24 94 Room Air 12/27/17 02:40 118 20 95 Room Air 12/27/17 02:35 107 12/27/17 02:33 113 12/27/17 02:01 141/102 12/27/17 01:55 37.7 114 20 153/96 95 Room Air 12/27/17 01:54 153/96 12/27/17 01:10 112 20 133/106 94 Room Air 12/27/17 01:07 133/106 12/27/17 01:00 157/117 12/27/17 00:35 114 34 95 12/27/17 00:30 146/108 12/27/17 00:05 111 27 12/27/17 00:00 143/95 97 Room Air Lab Results (24Hrs) Laboratory Tests (24 Hours) Test 12/26/17 21:33 White Blood Count 7.89 K/uL (4.8-10.8) Red Blood Count 5.46 M/uL (4.7-6.1) Hemoglobin 17.6 g/dL (14.0-18.0) Hematocrit 48.1 % (42-52) Mean Corpuscular Volume 88.1 fL (80-100) Mean Corpuscular Hemoglobin 32.2 pg (25-34) Mean Corpuscular Hemoglobin Concent 36.6 g/dl (32-36) H Platelet Count 223 K/uL (130-400) Mean Platelet Volume 10.7 fL (7.4-10.4) H Neutrophils (%) (Auto) 67.9 % Lymphocytes (%) (Auto) 25.3 % Monocytes (%) (Auto) 6.1 % Eosinophils (%) (Auto) 0.3 % Basophils (%) (Auto) 0.3 % Neutrophils # (Auto) 5.36 K/uL (1.4-6.5) Lymphocytes # (Auto) 2.00 K/uL (1.2-3.4) Monocytes # (Auto) 0.48 K/uL (0.11-0.59) Eosinophils # (Auto) 0.02 K/uL (0-0.5) Basophils # (Auto) 0.02 K/uL (0-0.2) Total Creatine Kinase 109 U/L (39-308) Micro Results Date/Time Source Procedure Growth Status 12/26/17 22:59 Blood Blood Culture Pending Received 12/26/17 22:59 Blood Blood Culture Pending Received 12/27/17 11:20 Cerebral Spinal Fluid Gram Stain Pending Received 12/27/17 11:20 Cerebral Spinal Fluid CSF Culture Pending Received Risk Factors for Resistance None identified at this time Assessment & Plan Assessment 37 year old male on empiric IV Vancomycin, Ceftriaxone, and Acyclovir for possible meningitis. * sCr = 1.29 mg/dL, CrCl ~93 mL/min. Estimated pharmacokinetic parameters: * Ke ~0.08/hr, T1/2 ~8.7 hrs * Given his obesity and potential for drug accumulation, need to be cautious with Vancomycin dosing, but still need to be aggressive enough to target therapeutic concentrations. * Patient received Vancomycin 2500mg (~23mg/kg) IV x 1 as a loading dose in the ED * Please note that there was a discrepancy with his height and weight, which explains why he received varying doses of Acyclovir. Plan Vancomycin IV * Maintenance dose: 1500 mg IV (~13 mg/kg) every 10 hours * Goal trough level for meningitis : 15 to 20 mcg/mL * Trough level ordered for 12/28/17 @ 1130 (only prior to 3rd dose and therefore not reflective of steady state, but would like to reassess dosing regimen earlier due to severity of illness and likelihood of drug accumulation in obese patient Acyclovir * 10mg/kg IV q8 target dose, based on *ideal* body weight * Continue Acyclovir 800mg (~10mg/kg) IV q8 Ceftriaxone * Continue Ceftriaxone 2g IV q12; no renal dosing adjustments needed Pharmacy will continue to follow and will adjust dose/frequency as necessary. Thank you.
[2017-12-27] MEDS: SODIUM CHLORIDE 0.9% 1000ML 1,000 ML IV SCH (14:11)
[2017-12-27 14:54] VITALS: BP 149/84; PULSE 90; TEMP 36.8; O2SAT 96
--- NOTE | 2017-12-27 14:56 | Progress Note ---
Progress Note Date of Service Dec 27, 2017. Progress Note ID Consult Dictated # [id number] A/P: 1. Encephalitis -Continue abx, follow cultures -Add HSV PCR to CSF analysis -Continue supportive [id number] -If pt has clinical improvement prior to return of HSV PCR, could complete course with po valtrex to complete 10 days -thank you
[2017-12-27] MEDS: VANCOMYCIN INJ 1,500 MG in SODIUM CHLORIDE 0.9% 500ML 500 ML IV SCH (16:04)
--- NOTE | 2017-12-27 17:14 | NEUROLOGY CONSULTATION ---
DATE OF CONSULTATION: 12/27/2017 Stephon is a 37-year-old white right right-handed man regularly followed by Dr. Shorty Be who suffers from moderate over nourishment, sleep apnea and has had a recent presumptive viral upper respiratory tract infection with fevers, shaking chills, cough, but no particular headache. This has been going on about a week and he has been taking Tylenol Cold and Flu. Last night the patient's returned and found the patient lying in her daughter's bed, which she got home from work and he was confused, had difficulty finding words, did not seem to know where he was and was brought to the Emergency Room. There he had what looked like an expressive aphasia and a stroke alert was called. A CT scan was negative for any significant abnormality with mild dehydration induced renal injury they felt the TPA was not indicated, but because of a viral illness and the fact that this emerged out of that setting, it was suggested he have an MRI because of the possibility of encephalitis or meningitis. Unfortunately he was too combative and agitated and despite attempts to sedate him he could not tolerate the MRI. He was covered with acyclovir and ceftriaxone and this continued. According to the family, he is better than he was, he is less agitated. He is pleasant, but still has a lot of nonsense speech, neologisms, paraphasias, yet he is able to perform simple commands. Knows right and left, can identify his fingers, can count fingers albeit slowly, cannot repeat and can read but has difficulty writing and seems to have a lot of apraxia when I hand him a pen and cannot seem to understand what to do with it. He has had no motor deficits or anything of this type. He has had a lumbar puncture under fluoroscopy which shows an elevated protein, normal glucose and 51 white cells, all of which were lymphocytes. Many laboratory studies are still pending. PAST MEDICAL HISTORY: Again, his past medical history reveals gout which is chronic and obstructive sleep apnea, which he has a mask. Otherwise, he has no significant illnesses and he takes no medications on a regular basis, other than last week when he has been taking Tylenol Cold and Flu with dextromethorphan and some antihistaminics. FAMILY HISTORY: Reveals some diabetes, otherwise unremarkable. SOCIAL HISTORY: Reveals him to be a never smoker, does not use ethanol, he is employed, he is , he has several children. His immunizations are apparently up to date with the exception he did not have an influenza shot this year. He has no known multidrug organisms. ALLERGIES: HE CLAIMS ALLERGIES TO PENICILLIN. The only scheduled medications at home are allopurinol 100 mg daily, and this has not changed. REVIEW OF SYSTEMS: Systems review could not be obtained directly from the patient last night, but according to what I can glean from his and mother today he has been well with the exception of his recent illness, he has had no weight loss, weight gain, fevers, sweats, chills, prior illnesses of a similar type this fall or winter. He has had no new issues referable to the head, eyes, ears, nose and throat, cardiovascular, pulmonary, gastrointestinal, genitourinary, musculoskeletal systems other than the symptoms associated with this presumptive viral illness. On admission the exam revealed him to be confused, a little agitated. Blood pressure 128/89, pulse was 112, respirations were 18. He had no gross cranial deformities. No stiffness of the neck. Eye movements were normal. He was not cooperative with the examiners last night, but is more cooperative with me today within the limits of his language comprehension. Lungs were clear. Heart had a regular rhythm. Extremities were free of edema. Neurologically, all we have is the language disturbance which certainly would fit criteria for am aphasia. He again can read simple phrases, cannot write and will not or cannot repeat, has a number of neologisms and paraphasias, cannot seem to name family members stating "I don't know" when asked who they are. He cannot name my watch. He cannot name a pen and one given the pen does not seem to know what to do it. Facial motility and strength are normal. Facial sensation appears to be normal, extraocular movements are normal. I cannot mushroom picker visual field cut, although when I hold four fingers up he seems to have a little difficulty locating the ones on the right, but this is a pretty soft finding. There is no drift or pronation sign, tremor, tics or choreiform activity. Reflexes are hypoactive throughout. Toes are downgoing. No Apolonia's signs are clearly seen. Strength testing is grossly intact as he was a little more cooperative with me today but sensory examination is unreliable, although I assume it is intact as he seems to withdraw from all noxious stimuli. IMAGING STUDIES: Again have been limited to CAT scan which shows no significant issues. An MRI will be attempted again. Lumbar puncture results are as noted above. His basic laboratory studies again are normal in terms of white count. CSF studies show elevated white count, elevated protein, normal glucose. He has cultures pending. It looks as though testing for influenza A and B thus far is negative. 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 This does not seem to be an influenza related illness, so an alternative viral etiology needs to be postulated and of all the treatable entities he certainly is receiving adequate coverage for herpes simplex. We really need an imaging study to be sure he does not have an atypical disseminated encephalomyelitic picture with multiple areas of white matter change as if this were the picture, treatment might involve the use of plasma exchange and he would have to be sent to a tertiary care center. His family is already considering requesting for a transfer as it is. I put in for infectious disease consult. I would not change the antibiotics at this time as he is receiving coverage for bacterial infections, which I do not think he has, and is receiving what I think is the only reasonable antiviral approach at this point. I will check back with him tomorrow. I am going to see if we can get an EEG just to be sure that there is no evidence for potentially epileptogenic activity going on here or a pattern that would be supportive of potential diagnosis of herpes simplex with periodic lateralized epileptiform discharges. I have discussed the case briefly with Dr. Maharaj today. Again, I will check back with him tomorrow. SUZIE
[2017-12-27] MEDS: ACYCLOVIR SOD INJ 800 MG in DEXTROSE 5% 250ML 250 ML IV SCH (18:02)
[2017-12-27 18:40] VITALS: BP 128/79; PULSE 94; TEMP 36.8; O2SAT 96
--- NOTE | 2017-12-27 18:44 | INFECT. DISEASE CONSULTATION ---
DATE OF CONSULTATION: 12/27/2017 HISTORY OF PRESENT ILLNESS: This is a 37-year-old gentleman who presented to the hospital with a change in mental status. His is present and provides us history. She states that she came home from work yesterday and found him confused in their daughter's bedroom. He recently has been taking [id number] cold medicine for an upper respiratory infection. She states he was having subjective fevers and chills and a dry cough at home. She denies any productive cough or hemoptysis. There was no nasal congestion. She denies him reporting any visual changes, headache or neck stiffness. They have had no recent travel. They do have 2 children at home which all have had recent upper respiratory illnesses. They also have a dog and cat at home. All members are up to date with vaccines. The patient did have a stroke alert in the hospital and is awaiting MRI. He was followed by neurology as well. As part of his workup, an LP was performed this morning which showed 51 white blood cells with 100% lymphocytes and an elevated protein. CSF culture was obtained. Gram stain is negative. Throat culture is pending. Blood cultures are pending as well. The patient had a flu swab which was negative. He was placed on vancomycin, Rocephin and acyclovir empirically. A Lyme titer is pending. CSF Lyme, PCR is pending. West Nile PCR is pending. He appears to be tolerating antibiotics. He is confused but does answer some questions. He is not oriented to place or time. He denies any fevers or chills. He denies any headache. He denies any chest pain. His remaining review of systems is limited, but normal. His speech is currently not slurred. He is moving all extremities without difficulty but is unable to follow commands. His states that this is a marked improvement from arrival to the hospital yesterday. His UDS in the ER was positive for benzos. Alcohol level was negative. PAST MEDICAL HISTORY: Significant for obstructive sleep apnea and gout. FAMILY HISTORY: Noncontributory. SOCIAL HISTORY: Negative for tobacco use, alcohol use or drug use. Again, there is no recent travel. He does have a positive sick contact with other family members with upper respiratory infections recently. ALLERGIES: HE HAS UNKNOWN ALLERGY TO PENICILLIN. MEDICATIONS: Include acyclovir, vancomycin, Rocephin, aspirin, Lipitor, Tylenol and Zofran. PHYSICAL EXAMINATION: VITAL SIGNS: His current temperature is 37.2, he did have a temperature of 37.7 overnight, pulse 90, respiratory rate 18, blood pressure 153/81, oxygen saturation is 95-100% on room air. GENERAL: He is awake but confused. He does answer some questions, but does not answer most questions appropriately. He does not follow commands. He does not appear to be in any acute distress. HEENT: Mucous membranes are moist. There is no nuchal rigidity. HEART: Regular. LUNGS: Clear. ABDOMEN: Soft. There is no edema. SKIN: Without rash. There are multiple tattoos, some of which are new. There is no purulence, erythema, warmth or drainage from the newer tattoos. LABORATORY STUDIES: CBC yesterday reveals a white blood cell count of 7.8, hemoglobin 17.6 and platelets of 223. Chemistry panel in the ER, sodium 136, potassium 3.7, chloride 102, bicarbonate 25, BUN 13, creatinine 1.2, glucose is 122, AST is 76, ALT is 130, total protein is 9.7 and lipase was normal. Lactic acid was 1.8. Urinalysis was unremarkable. UDS was positive for benzos. CSF showed clear colorless fluid with 51 white cells, 100% lymphocytes. Glucose was normal. Protein was elevated at 77.8. West Nile is pending. Lyme PCR is pending. Flu swab was negative. Blood culture and CSF culture are pending. CAT scan of the head in the Emergency Room showed no acute abnormality. A chest x-ray done in the ER was negative as well. ASSESSMENT AND PLAN: Likely encephalitis. However, he will remain on empiric antibiotics pending blood and CSF culture results. He will remain on acyclovir and HSV PCR will be added as I do not see that this was ordered. Additional viral etiologies are pending as well. Supportive care will be continued. Thank you for this consultation.
--- NOTE | 2017-12-27 18:53 | Progress Note ---
Progress Note Date of Service Dec 27, 2017. Progress Note Subjective: Patient seen and examined several times today. His speech is becoming less aphasic. Still having trouble with some recall memory but enunciating better. Patient could not cooperate on afternoon efforts to have him complete brain MRI. Patient agreeable to try again tomorrow Physical Exam General: no acute distress, calm, cooperative on exam Neuro: some aphasia, awake and alert, no motor deficits Heart: regular rate Lungs: CTABL Abdomen: soft, nontender, + bowel sounds Extremities: no edema Plan: Patient found to have evidence of meningitis/encephalitis with elevated WBC in CSF on Lumbar Puncture -continue Vancomycin, Ceftriaxone, Acyclovir, follow up other CSF results -droplet precautions -Aphasia likely from meningitis/encephalitis; no swallowing deficits -No acute intracranial abnormality on admission CT head -neurology service have requested that MRI of head to be completed but patient could not cooperate; will try again tomorrow -neurology may do EEG LUZ ELENA - on IVF and trend GFR Gout - holding allopurinol as there is no acute flare BARB - no active breathing problems, observe DVT ppx Full Code Family: [phone]
[2017-12-27 23:40] VITALS: BP 148/85; PULSE 78; TEMP 37.1; O2SAT 100
[2017-12-28] VITALS (7 sets, daily range): BP systolic 117–144; BP diastolic 72–88; PULSE 75–88; TEMP 36.7–37.5; O2SAT 95–98
[2017-12-28] MEDS: VANCOMYCIN INJ 1,500 MG in SODIUM CHLORIDE 0.9% 500ML 500 ML IV SCH ×3 (01:44→22:01)
[2017-12-28] MEDS: ACYCLOVIR SOD INJ 800 MG in DEXTROSE 5% 250ML 250 ML IV SCH ×3 (01:44→18:29)
[2017-12-28] MEDS: SODIUM CHLORIDE 0.9% 1000ML 1,000 ML IV SCH ×3 (04:10→22:03)
[2017-12-28] MEDS: ASPIRIN 81 MG ECTAB PO SCH (07:36)
[2017-12-28] MEDS: ATORVASTATIN 40 MG TAB PO SCH (07:36)
[2017-12-28 08:02] LABS: BASO % 0.2 %; BASO ABS # 0.01 K/uL (0-0.2); EOS % 1.5 %; HEMATOCRIT 40.2 % (42-52); HEMOGLOBIN 14.6 g/dL (14.0-18.0); IG# 0.03 K/uL (0.00-0.02); LYMPH % 24.1 %; MEAN CORPUSCULAR HEMOGLOBIN 31.9 pg (25-34); MEAN CORPUSCULAR HGB CONC 36.3 g/dl (32-36); MEAN PLATELET VOLUME 10.1 fL (7.4-10.4); MONO % 8.4 %; MONO ABS # 0.56 K/uL (0.11-0.59); NEUT % 65.3 %; NEUT ABS # 4.34 K/uL (1.4-6.5); PLATELET COUNT 172 K/uL (130-400); RED CELL DISTRIBUTION WIDTH CV 12.2 % (11.5-14.5); RED CELL DISTRIBUTION WIDTH SD 38.9 fL (36.4-46.3); WHITE BLOOD COUNT 6.64 K/uL (4.8-10.8)
[2017-12-28 08:23] LABS: CREATININE 1.04 mg/dl (0.60-1.40); POTASSIUM 3.7 mmol/L (3.5-5.1)
[2017-12-28] MEDS: ACETAMINOPHEN 325 MG TAB PO PRN ×3 (10:53→23:57)
[2017-12-28] MEDS ORDERED: VANCOMYCIN TROUGH ONE (11:30)
--- NOTE | 2017-12-28 12:10 | PROGRESS NOTE ---
DATE: 12/28/2017 SUBJECTIVE: Stephon looks much better than he did yesterday. When he is speaking, there is a little hesitancy. He does not have significant word finding, there is no neologisms or paraphasias. He is reading his phone and told me the date, the time, the day of the week, knows his 's name, knows he is in [facility] and his only complaint is that of a headache. He cannot tell me whether this is positional or not as he has been just moved up to the fourth floor from the 2nd, he is sitting in a chair and he says he has not laid down and so he is not clear whether the headache is worse with position change. The complaints are relatively nondramatic, so I do not think this is a post-LP headache but we will see what happens when he reclines. He thinks he could do an MRI today and hopefully will get done. I would like to really look at that left hemispheric area, particularly in his subcortical white matter and the cortex itself to see if there are any areas of inflammation and more importantly where there are multiple areas that would suggest a disseminated encephalomyelitis picture, although the history suggests that this is all coming out of an acute viral syndrome of indeterminate causation with a CSF lymphocytic pleocytosis and elevated protein, normal glucose as he had negative cultures and clinical picture that suggests a focal encephalitis involving the left hemisphere. Whether this is a herpes simplex or another virus is unclear. He is on IV acyclovir plus 2 other antibiotics, although I think the latter probably necessary. I will defer obviously to the infectious diseases expertise on this one. For now, in light of his marked improvement, I do not think we need to consider tertiary care center referral. I will check an EEG on Saturday and hopefully over the weekend will finally get an MRI and we can assess what damage may or may not have been done to his nervous system. I will check with him tomorrow. SUZIE
[2017-12-28] MEDS: CEFTRIAXONE SOD INJ 2000 MG in DEXTROSE 5% 50ML IV SCH ×4 (13:36→23:57)
--- NOTE | 2017-12-28 14:09 | Progress Note ---
Internal Med Progress Note Date of Service: Dec 28, 2017. Provider Documentation: Subjective: Overnight patient was reported to be confused. This AM when examined patient speaking more clearly with some stutter in his speech as the patient describes it. Denies pain. Patient agrees to plan of returning to MRI room today for the MRI brain study Physical Exam General: no acute distress, calm, cooperative on exam Neuro: some stuttering of speech, awake and alert,ambulatory, motor strength intact Heart: regular rate Lungs: CTABL, no wheezing Abdomen: soft, nontender, + bowel sounds Extremities: no edema ASSESSMENT & PLAN: Patient found to have evidence of meningitis/encephalitis with elevated WBC in CSF on Lumbar Puncture which as per neurology is consistent with viral infection rather than bacterial infection -continue Acyclovir -continue Vancomycin, Ceftriaxone for now as patient appears to be making clinical improvements, may continue stopping antibiotics if further resolution of Encephalopathy -Aphasia likely from meningitis/encephalitis; no swallowing deficits -continue droplet precautions -No acute intracranial abnormality on admission CT head -neurology service have requested that MRI of head to be completed but patient could not cooperate yesterday x 2 attempts to get MRi scan; will try again today -neurology may do EEG in the future LUZ ELENA resolved after IV fluids Gout - holding allopurinol as there is no acute flare BARB - no active breathing problems, observe DVT ppx Full Code Family: [phone] Vital Signs: Date Time Temp Pulse Resp B/P (MAP) Pulse Ox O2 Delivery O2 Flow Rate FiO2 12/28/17 14:22 36.7 75 20 117/72 (87) 98 Room Air 12/28/17 11:16 84 95 12/28/17 11:00 37.5 84 22 95 12/28/17 08:00 37.5 84 22 144/88 (106) 95 Room Air 12/28/17 08:00 Room Air 12/28/17 04:00 Room Air 12/28/17 03:34 37.1 88 18 136/85 (102) 96 Room Air 12/28/17 00:00 Room Air 12/27/17 23:40 37.1 78 20 148/85 (106) 100 Room Air 12/27/17 20:00 Room Air 12/27/17 18:40 36.8 94 18 128/79 (95) 96 Room Air 12/27/17 16:00 Room Air 12/27/17 14:54 36.8 90 20 149/84 (105) 96 Room Air Lab Results: Results Past 24 Hours Test 12/28/17 07:23 12/28/17 11:32 Range/Units White Blood Count 6.64 4.8-10.8 K/uL Red Blood Count 4.57 4.7-6.1 M/uL Hemoglobin 14.6 14.0-18.0 g/dL Hematocrit 40.2 42-52 % Mean Corpuscular Volume 88.0 80-100 fL Mean Corpuscular Hemoglobin 31.9 25-34 pg Mean Corpuscular Hemoglobin Concent 36.3 32-36 g/dl Platelet Count 172 130-400 K/uL Mean Platelet Volume 10.1 7.4-10.4 fL Neutrophils (%) (Auto) 65.3 % Lymphocytes (%) (Auto) 24.1 % Monocytes (%) (Auto) 8.4 % Eosinophils (%) (Auto) 1.5 % Basophils (%) (Auto) 0.2 % Neutrophils # (Auto) 4.34 1.4-6.5 K/uL Lymphocytes # (Auto) 1.60 1.2-3.4 K/uL Monocytes # (Auto) 0.56 0.11-0.59 K/uL Eosinophils # (Auto) 0.10 0-0.5 K/uL Basophils # (Auto) 0.01 0-0.2 K/uL RDW Standard Deviation 38.9 36.4-46.3 fL RDW Coefficient of Variation 12.2 11.5-14.5 % Immature Granulocyte % (Auto) 0.5 % Immature Granulocyte # (Auto) 0.03 0.00-0.02 K/uL Sodium Level 138 136-145 mmol/L Potassium Level 3.7 3.5-5.1 mmol/L Chloride Level 104 98-107 mmol/L Carbon Dioxide Level 26 21-32 mmol/L Anion Gap 8.0 3-11 mmol/L Blood Urea Nitrogen 11 7-18 mg/dl Creatinine 1.04 0.60-1.40 mg/dl Est Creatinine Clear Calc Drug Dose 128.0 ml/min Estimated GFR () 106.6 Estimated GFR (Non- 91.9 BUN/Creatinine Ratio 10.7 10-20 Random Glucose 102 70-99 mg/dl Calcium Level 9.0 8.5-10.1 mg/dl Triglycerides Level 124 0-150 mg/dl Cholesterol Level 156 0-200 mg/dl HDL Cholesterol 26 mg/dl LDL Cholesterol, Calculated 105 mg/dl VLDL Cholesterol, Calculated 25 mg/dl Cholesterol/HDL Ratio 6.0 Vancomycin Level Trough 10.6 SEE COMMENT mcg/ml
[2017-12-28] MEDS ORDERED: GADAVIST IV PRN (18:15)
--- NOTE | 2017-12-28 18:17 | DIAGNOSTIC IMAGING REPORT ---
BRAIN COMBO CLINICAL HISTORY: 37 years-old Male presenting with eval for CVA, intracranial process, slurred speech, confusion, sick for one week, headache. TECHNIQUE: Multisequence, multiplanar MR imaging of the brain was performed before and after the administration of intravenous contrast. IV contrast: 11 mL of Gadavist. COMPARISON: CT head from 12/26/2017. FINDINGS: Ventricles and sulci normal in size. Brain parenchyma normal in appearance with preserved pelaez-white differentiation. No mass effect or midline shift. No restricted diffusion to suggest acute ischemia. No hemorrhage. No extra-axial fluid collection. T2 skull base flow voids preserved. No abnormal parenchymal enhancement. Bone marrow signal intensity within the calvarium within normal limits. Thickening of the adenoidal lymphoid tissue along the posterior nasopharynx. IMPRESSION: 1. No acute intracranial pathology. No abnormal enhancement. Electronically signed by: Amandeep Becerra M.D. 12/28/2017 6:16 PM Dictated Date/Time: 12/28/2017 6:11 PM
[2017-12-29] MEDS: ACYCLOVIR SOD INJ 800 MG in DEXTROSE 5% 250ML 250 ML IV SCH ×3 (01:55→18:33)
[2017-12-29] MEDS: VANCOMYCIN INJ 1,500 MG in SODIUM CHLORIDE 0.9% 500ML 500 ML IV SCH ×3 (05:47→20:50)
[2017-12-29 06:57] LABS: BASO % 0.7 %; BASO ABS # 0.04 K/uL (0-0.2); EOS % 2.9 %; EOS ABS # 0.17 K/uL (0-0.5); HEMOGLOBIN 13.4 g/dL (14.0-18.0); IG# 0.03 K/uL (0.00-0.02); LYMPH % 29.3 %; LYMPH ABS # 1.72 K/uL (1.2-3.4); MEAN CELL VOLUME 88.6 fL (80-100); MEAN CORPUSCULAR HEMOGLOBIN 31.2 pg (25-34); MEAN CORPUSCULAR HGB CONC 35.3 g/dl (32-36); MEAN PLATELET VOLUME 10.3 fL (7.4-10.4); MONO % 10.2 %; NEUT % 56.4 %; NEUT ABS # 3.31 K/uL (1.4-6.5); PLATELET COUNT 156 K/uL (130-400); RED CELL DISTRIBUTION WIDTH CV 12.5 % (11.5-14.5); RED CELL DISTRIBUTION WIDTH SD 40.2 fL (36.4-46.3); WHITE BLOOD COUNT 5.87 K/uL (4.8-10.8)
[2017-12-29 07:43] LABS: CALCIUM 8.6 mg/dl (8.5-10.1); CREATININE 1.08 mg/dl (0.60-1.40); POTASSIUM 3.9 mmol/L (3.5-5.1)
[2017-12-29] MEDS: ASPIRIN 81 MG ECTAB PO SCH (07:53)
[2017-12-29] MEDS: ATORVASTATIN 40 MG TAB PO SCH (07:54)
[2017-12-29 08:00] VITALS: O2SAT 95
[2017-12-29 08:17] VITALS: BP 122/81; PULSE 79; TEMP 36.6; O2SAT 95
--- NOTE | 2017-12-29 08:39 | Progress Note ---
Subjective Date of Service: Dec 29, 2017. Subjective cultures negative, afebrile. mri nml. wbc nml. tolerating abx. HSV PCR pending. Problem List Medical Problems: (1) Altered mental status Status: Acute (2) Aphasia Status: Acute Objective Vital Signs Date Time Temp Pulse Resp B/P (MAP) Pulse Ox O2 Delivery O2 Flow Rate FiO2 12/29/17 08:17 36.6 79 20 122/81 (95) 95 Room Air 12/29/17 00:39 CPAP 12/28/17 23:01 36.9 77 17 123/78 (93) 98 CPAP 12/28/17 16:00 Room Air 12/28/17 14:22 36.7 75 20 117/72 (87) 98 Room Air 12/28/17 11:16 84 95 12/28/17 11:15 95 Room Air 12/28/17 11:00 37.5 84 22 95 Laboratory Results Item Value Date Time Gram Stain - Final Resulted 12/27/17 1120 Cerebral Spinal Fluid Blood Culture - Preliminary Resulted 12/26/17 2259 Blood NO GROWTH TO DATE. Blood Culture - Preliminary Resulted 12/26/17 2259 Blood NO GROWTH TO DATE. Last 24 Hours Test 12/28/17 11:32 12/29/17 06:31 Vancomycin Level Trough 10.6 mcg/ml White Blood Count 5.87 K/uL Red Blood Count 4.29 M/uL Hemoglobin 13.4 g/dL Hematocrit 38.0 % Mean Corpuscular Volume 88.6 fL Mean Corpuscular Hemoglobin 31.2 pg Mean Corpuscular Hemoglobin Concent 35.3 g/dl Platelet Count 156 K/uL Mean Platelet Volume 10.3 fL Neutrophils (%) (Auto) 56.4 % Lymphocytes (%) (Auto) 29.3 % Monocytes (%) (Auto) 10.2 % Eosinophils (%) (Auto) 2.9 % Basophils (%) (Auto) 0.7 % Neutrophils # (Auto) 3.31 K/uL Lymphocytes # (Auto) 1.72 K/uL Monocytes # (Auto) 0.60 K/uL Eosinophils # (Auto) 0.17 K/uL Basophils # (Auto) 0.04 K/uL RDW Standard Deviation 40.2 fL RDW Coefficient of Variation 12.5 % Immature Granulocyte % (Auto) 0.5 % Immature Granulocyte # (Auto) 0.03 K/uL Sodium Level 139 mmol/L Potassium Level 3.9 mmol/L Chloride Level 107 mmol/L Carbon Dioxide Level 27 mmol/L Anion Gap 5.0 mmol/L Blood Urea Nitrogen 10 mg/dl Creatinine 1.08 mg/dl Est Creatinine Clear Calc Drug Dose 123.3 ml/min Estimated GFR () 101.8 Estimated GFR (Non- 87.8 BUN/Creatinine Ratio 9.2 Random Glucose 98 mg/dl Calcium Level 8.6 mg/dl Assessment and Plan (1) Encephalitis Assessment & Plan: likely viral, follow cultures. continue therapy for now
[2017-12-29] MEDS: SODIUM CHLORIDE 0.9% 1000ML 1,000 ML IV SCH (09:34)
--- NOTE | 2017-12-29 12:23 | PROGRESS NOTE ---
DATE: 12/29/2017 SUBJECTIVE: Stephon looks great today. According to his mother who is in the room, he is be essentially back to his baseline, they have been texting back and forth. She has not noted any confusion or spelling errors. He is awake, alert, oriented in 3 spheres. His speech is clear with no paraphasic errors, neologisms etc There is no dysarthria. I do not see any tremor, tics, or choreiform activity. Motor strength is normal. Cranial nerves are normal and his overall exam is normal. He still feels subjectively weak and tired. There is a minor low grade headache which is not positional and all of this I think is consistent with the presumptive viral encephalitis. The MRI shows nothing of significance. There are no areas of enhancement, no white matter lesions and an EEG is pending tomorrow. For now, he is still on 3 antimicrobials, one antiviral in the form of acyclovir and vancomycin, ceftriaxone and I am going to defer to infectious disease regarding how long these medications need to be continued. If this is a herpes encephalitis it certainly has run a very benign course as most of the time these forms of encephalitis are severe with necrotic areas in the temporal lobes and a host of clinical deficits. 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 He was tested negative for influenza A and B, but there is a host of adenoviruses and other entities which could have caused a similar problem. We will look at him again tomorrow. Hopefully, the EEG will be available for me to interpret, but unless I see significant abnormalities, I am certainly not going to subject this man to anticonvulsants. SUZIE
[2017-12-29] MEDS ORDERED: VANCOMYCIN TROUGH ONE (13:30)
[2017-12-29] MEDS: CEFTRIAXONE SOD INJ 2000 MG in DEXTROSE 5% 50ML IV SCH ×2 (13:56→23:31)
[2017-12-29] MEDS: ACETAMINOPHEN 325 MG TAB PO PRN ×2 (14:08→23:32)
--- NOTE | 2017-12-29 14:42 | Pharmacy Progress Note ---
Pharmacy Abx Dose Short Note Date of Service Dec 29, 2017. Assessment & Plan Item Value Date Time Vancomycin Level Trough 17.0 mcg/ml 12/29/17 1339 Creatinine 1.08 mg/dl 12/29/17630 Est Creatinine Clear Calc Drug Dose 123.3 ml/min 12/29/17630 Plan ID suggests continuing current therapy for now. Day #3: VANC, Day #4: Ceftriaxone/Acyclovir Vancomycin * Trough level of 17 mcg/mL is therapeutic. * Continue maintenance dose of VANC 1500mg (~13mg/kg) IV every 8 hours * Goal trough level: ~20 mcg/mL * Will recheck VANC trough in 1-3 days if therapy is continued. Rocephin: Continue 2grams IV every 12 hours Acyclovir: 800mg (10mg/kg IBW) IV every 8 hours Pharmacy will continue to follow and will adjust dose/frequency as necessary. Thank you.
[2017-12-29 15:01] VITALS: BP 105/64; PULSE 79; TEMP 36.9; O2SAT 97
--- NOTE | 2017-12-29 15:56 | Progress Note ---
Internal Med Progress Note Date of Service: Dec 29, 2017. Provider Documentation: Subjective: Patient doing well. Has been ambulating and speaking more clearly and more quickly. Physical Exam General: no acute distress, calm, cooperative on exam Neuro: awake and alert and oriented, motor strength intact Heart: regular rate Lungs: CTABL, no wheezing Abdomen: soft, nontender, + bowel sounds Extremities: no edema ASSESSMENT & PLAN: Patient found to have evidence of meningitis/encephalitis with elevated WBC in CSF on Lumbar Puncture which as per neurology and infectious disease consultation that studies are consistent with viral infection rather than bacterial infection -Aphasia likely from encephalitis; no swallowing deficits -as per neurology evaluation it is unclear whether labs will identify definitive viral causes , and suspects nonherpetic viral encephalitis -will continue Acyclovir, Vancomycin, Ceftriaxone for now as patient has made clinical improvements, appreciate infectious disease consult on length and duration of therapies -No acute intracranial abnormality on admission CT head, normal MRI results on -neurology may do EEG on 12/30/17 LUZ ELENA resolved after IV fluids Gout - holding allopurinol as there is no acute flare BARB - no active breathing problems, observe DVT ppx Full Code Family: [phone] Vital Signs: Date Time Temp Pulse Resp B/P (MAP) Pulse Ox O2 Delivery O2 Flow Rate FiO2 12/29/17 15:01 36.9 79 20 105/64 (78) 97 Room Air 12/29/17 08:17 36.6 79 20 122/81 (95) 95 Room Air 12/29/17 08:00 95 Room Air 12/29/17 00:39 CPAP 12/28/17 23:01 36.9 77 17 123/78 (93) 98 CPAP 12/28/17 16:00 Room Air Lab Results: Results Past 24 Hours Test 12/29/17 06:31 12/29/17 13:39 Range/Units White Blood Count 5.87 4.8-10.8 K/uL Red Blood Count 4.29 4.7-6.1 M/uL Hemoglobin 13.4 14.0-18.0 g/dL Hematocrit 38.0 42-52 % Mean Corpuscular Volume 88.6 80-100 fL Mean Corpuscular Hemoglobin 31.2 25-34 pg Mean Corpuscular Hemoglobin Concent 35.3 32-36 g/dl Platelet Count 156 130-400 K/uL Mean Platelet Volume 10.3 7.4-10.4 fL Neutrophils (%) (Auto) 56.4 % Lymphocytes (%) (Auto) 29.3 % Monocytes (%) (Auto) 10.2 % Eosinophils (%) (Auto) 2.9 % Basophils (%) (Auto) 0.7 % Neutrophils # (Auto) 3.31 1.4-6.5 K/uL Lymphocytes # (Auto) 1.72 1.2-3.4 K/uL Monocytes # (Auto) 0.60 0.11-0.59 K/uL Eosinophils # (Auto) 0.17 0-0.5 K/uL Basophils # (Auto) 0.04 0-0.2 K/uL RDW Standard Deviation 40.2 36.4-46.3 fL RDW Coefficient of Variation 12.5 11.5-14.5 % Immature Granulocyte % (Auto) 0.5 % Immature Granulocyte # (Auto) 0.03 0.00-0.02 K/uL Sodium Level 139 136-145 mmol/L Potassium Level 3.9 3.5-5.1 mmol/L Chloride Level 107 98-107 mmol/L Carbon Dioxide Level 27 21-32 mmol/L Anion Gap 5.0 3-11 mmol/L Blood Urea Nitrogen 10 7-18 mg/dl Creatinine 1.08 0.60-1.40 mg/dl Est Creatinine Clear Calc Drug Dose 123.3 ml/min Estimated GFR () 101.8 Estimated GFR (Non- 87.8 BUN/Creatinine Ratio 9.2 10-20 Random Glucose 98 70-99 mg/dl Calcium Level 8.6 8.5-10.1 mg/dl Vancomycin Level Trough 17.0 SEE COMMENT mcg/ml
[2017-12-29 23:28] VITALS: BP 144/87; PULSE 82; TEMP 37.1; O2SAT 97
[2017-12-30] MEDS: SODIUM CHLORIDE 0.9% 1000ML 1,000 ML IV SCH ×3 (01:34→15:58)
[2017-12-30] MEDS: ACYCLOVIR SOD INJ 800 MG in DEXTROSE 5% 250ML 250 ML IV SCH ×2 (01:34→10:00)
[2017-12-30] MEDS: VANCOMYCIN INJ 1,500 MG in SODIUM CHLORIDE 0.9% 500ML 500 ML IV SCH (05:55)
[2017-12-30 07:16] LABS: BASO % 0.2 %; BASO ABS # 0.01 K/uL (0-0.2); EOS % 4.1 %; HEMATOCRIT 37.6 % (42-52); HEMOGLOBIN 13.1 g/dL (14.0-18.0); IG# 0.03 K/uL (0.00-0.02); LYMPH ABS # 1.55 K/uL (1.2-3.4); MEAN CELL VOLUME 88.3 fL (80-100); MEAN CORPUSCULAR HEMOGLOBIN 30.8 pg (25-34); MEAN CORPUSCULAR HGB CONC 34.8 g/dl (32-36); MEAN PLATELET VOLUME 10.3 fL (7.4-10.4); MONO % 9.9 %; MONO ABS # 0.48 K/uL (0.11-0.59); NEUT % 53.2 %; NEUT ABS # 2.58 K/uL (1.4-6.5); PLATELET COUNT 161 K/uL (130-400); RED CELL DISTRIBUTION WIDTH CV 12.3 % (11.5-14.5); RED CELL DISTRIBUTION WIDTH SD 39.4 fL (36.4-46.3); WHITE BLOOD COUNT 4.85 K/uL (4.8-10.8)
[2017-12-30 07:21] VITALS: BP 116/68; PULSE 67; TEMP 36.5; O2SAT 99
[2017-12-30 07:46] LABS: CALCIUM 8.5 mg/dl (8.5-10.1); CREATININE 1.08 mg/dl (0.60-1.40); POTASSIUM 3.8 mmol/L (3.5-5.1)
[2017-12-30] MEDS: ASPIRIN 81 MG ECTAB PO SCH (09:21)
[2017-12-30] MEDS: ATORVASTATIN 40 MG TAB PO SCH (09:21)
--- NOTE | 2017-12-30 10:50 | Progress Note ---
Subjective Date of Service: Dec 30, 2017. Subjective Pt evaluation today including: conversation w/ patient, physical exam, chart review, lab review pt oob to chair. feeling much better. much more appropriate this am. all cultures negative. hsv pcr pending, remains on abx. csf culture negative and final. wbc nml. afebrile. min walker. no neck pain, no sob, still with intermittent dry cough. no visual change. mri nml. all remaining ros reviewed and ar negative. Problem List Medical Problems: (1) Altered mental status Status: Acute (2) Aphasia Status: Acute Objective Vital Signs Date Time Temp Pulse Resp B/P (MAP) Pulse Ox O2 Delivery O2 Flow Rate FiO2 12/30/17 08:00 Room Air 12/30/17 07:21 36.5 67 20 116/68 (84) 99 BiPAP 12/30/17 00:00 Room Air 12/29/17 23:28 37.1 82 18 144/87 (106) 97 Room Air 12/29/17 16:20 Room Air 12/29/17 15:01 36.9 79 20 105/64 (78) 97 Room Air Physical Exam General Appearance: WD/WN, no apparent distress Eyes: normal inspection, EOMI Neck: supple Respiratory/Chest: lungs clear, normal breath sounds, no respiratory distress Cardiovascular: regular rate, rhythm, no edema Abdomen: non tender, soft Extremities: non-tender, no pedal edema Neurologic/Psychiatric: alert, oriented x 3 Skin: normal color Laboratory Results Item Value Date Time Blood Culture - Preliminary Resulted 12/26/172258 Blood NO GROWTH TO DATE. Blood Culture - Preliminary Resulted 12/26/172258 Blood NO GROWTH TO DATE. Gram Stain - Final Complete 12/27/17 1120 Cerebral Spinal Fluid Last 24 Hours Test 12/29/17 13:39 12/30/17 06:51 Vancomycin Level Trough 17.0 mcg/ml White Blood Count 4.85 K/uL Red Blood Count 4.26 M/uL Hemoglobin 13.1 g/dL Hematocrit 37.6 % Mean Corpuscular Volume 88.3 fL Mean Corpuscular Hemoglobin 30.8 pg Mean Corpuscular Hemoglobin Concent 34.8 g/dl Platelet Count 161 K/uL Mean Platelet Volume 10.3 fL Neutrophils (%) (Auto) 53.2 % Lymphocytes (%) (Auto) 32.0 % Monocytes (%) (Auto) 9.9 % Eosinophils (%) (Auto) 4.1 % Basophils (%) (Auto) 0.2 % Neutrophils # (Auto) 2.58 K/uL Lymphocytes # (Auto) 1.55 K/uL Monocytes # (Auto) 0.48 K/uL Eosinophils # (Auto) 0.20 K/uL Basophils # (Auto) 0.01 K/uL RDW Standard Deviation 39.4 fL RDW Coefficient of Variation 12.3 % Immature Granulocyte % (Auto) 0.6 % Immature Granulocyte # (Auto) 0.03 K/uL Sodium Level 140 mmol/L Potassium Level 3.8 mmol/L Chloride Level 106 mmol/L Carbon Dioxide Level 26 mmol/L Anion Gap 8.0 mmol/L Blood Urea Nitrogen 10 mg/dl Creatinine 1.08 mg/dl Est Creatinine Clear Calc Drug Dose 123.3 ml/min Estimated GFR () 101.8 Estimated GFR (Non- 87.8 BUN/Creatinine Ratio 8.8 Random Glucose 97 mg/dl Calcium Level 8.5 mg/dl Assessment and Plan (1) Encephalitis Assessment & Plan: csf culture negative, final. blood cultures negative. suspect viral etiology. will stop abx. maintain acyclovir pending HSV PCR bu doubt with nml mri. If pt to be d/c home prior to HSV would suggest changing to valtrex 1 g po tid x 7 days for emperic treatment. no new ID recs. ok for d/c when otherwise stable.
--- NOTE | 2017-12-30 15:29 | Neurology Progress Notes ---
Neurology Progress Note Date of Service Dec 30, 2017. Meghan Szymanski is a 37 year old male with AMS presents with who told ER staff that he was acting funny and she knows he was taking Tylenol Cold And flu for a recent cold. The states that she found him lying in their daughter's bed when she got home from work. She states that he was sick with the flu for the last week but that he was normal yesterday. She reported weakness, fever and cough. There was thought to be some slurred speech but the CT head was negative for acute IC abnormality. Lab work revealed a mild LUZ ELENA with creat around 1.4 and baseline around 0.9. The ED MDs thought it may be dextromethorphan overdose but he was given some antibiotics in the ED. today his and grandmother are in the room and state they thinks he is back to baseline. He has been up walking in the room with no issues. denies CP, SOB abdominal pain, weakness, N, V, headaches, vision changes. Objective Date Time Temp Pulse Resp B/P (MAP) Pulse Ox O2 Delivery O2 Flow Rate FiO2 12/30/17 08:00 Room Air 12/30/17 07:21 36.5 67 20 116/68 (84) 99 BiPAP 12/30/17 00:00 Room Air 12/29/17 23:28 37.1 82 18 144/87 (106) 97 Room Air 12/29/17 16:20 Room Air Last 24 Hours Test 12/30/17 06:51 White Blood Count 4.85 K/uL Red Blood Count 4.26 M/uL Hemoglobin 13.1 g/dL Hematocrit 37.6 % Mean Corpuscular Volume 88.3 fL Mean Corpuscular Hemoglobin 30.8 pg Mean Corpuscular Hemoglobin Concent 34.8 g/dl Platelet Count 161 K/uL Mean Platelet Volume 10.3 fL Neutrophils (%) (Auto) 53.2 % Lymphocytes (%) (Auto) 32.0 % Monocytes (%) (Auto) 9.9 % Eosinophils (%) (Auto) 4.1 % Basophils (%) (Auto) 0.2 % Neutrophils # (Auto) 2.58 K/uL Lymphocytes # (Auto) 1.55 K/uL Monocytes # (Auto) 0.48 K/uL Eosinophils # (Auto) 0.20 K/uL Basophils # (Auto) 0.01 K/uL RDW Standard Deviation 39.4 fL RDW Coefficient of Variation 12.3 % Immature Granulocyte % (Auto) 0.6 % Immature Granulocyte # (Auto) 0.03 K/uL Sodium Level 140 mmol/L Potassium Level 3.8 mmol/L Chloride Level 106 mmol/L Carbon Dioxide Level 26 mmol/L Anion Gap 8.0 mmol/L Blood Urea Nitrogen 10 mg/dl Creatinine 1.08 mg/dl Est Creatinine Clear Calc Drug Dose 123.3 ml/min Estimated GFR () 101.8 Estimated GFR (Non- 87.8 BUN/Creatinine Ratio 8.8 Random Glucose 97 mg/dl Calcium Level 8.5 mg/dl Imaging: MRI combo-No acute intracranial pathology. No abnormal enhancement. Exam: Physical Exam: Constitutional: appearance nourished, healthy and normal Ears, Nose, Mouth and Throat: mucous membranes moist, no injection and skin normal, eyes normal Cardiovascular: normal S-1 and S-2 and regular rate and rhythm Respiratory: clear to auscultation (CTA) and no rales, rhonchi or wheeze Musculoskeletal: no peripheral edema Skin: no stigmata of neurocutaneous disease noted and normal and intact Eyes: extraocular muscles intact (EOMI) and pupils equal, round and reactive to light (PERRL) NEUROLOGIC EXAMINATION: Mental status: Alert and interactive Oriented to full date and location Oriented to person Speech fluent with no evidence of aphasia Cranial Nerves smile eye brow raise symmetric, tongue midline Reflexes: Deep tendon reflexes were symmetrical and graded 2/5. Plantar responses were flexor. Sensory: light touch Coordination: finger to nose no bi pass Gait/Stance: Posture sitting up in bed no difficulty with repositioning or moving Motor: Negative for pronator drift of out stretched arms with eyes closed. Strength: biceps triceps deltoids hand ehs engineer 5/5 bilaterally hip flex plantar flex ext bilaterally 5/5 Current Inpatient Medications Medications (Trade) Dose Ordered Sig/Angeli Route Start Time Stop Time Status Last Admin Dose Admin Atorvastatin Calcium (Lipitor Tab) 40 mg QAM PO 12/27/17 06:00 01/26/18 05:59 12/30/17 09:21 40 MG Aspirin (Ecotrin Tab) 81 mg QAM PO 12/27/17 09:00 01/26/18 08:59 12/30/17 09:21 81 MG Sodium Chloride 1,000 ml @ 100 mls/hr Q10H IV 12/27/17 10:00 01/26/18 09:59 12/30/17 01:34 100 MLS/HR Acetaminophen (Tylenol Tab) 650 mg Q4H PRN PO 12/27/17 06:00 01/26/18 05:59 12/29/17 23:32 650 MG Ondansetron HCl (Zofran Inj) 4 mg Q6H PRN IV 12/27/17 06:00 01/26/18 05:59 Acyclovir Sodium (Consult) 1 ea UD PRN N/A 12/27/17 08:37 01/26/18 08:36 Acyclovir Sodium 800 mg/Dextrose 266 ml @ 250 mls/hr Q8H IV 12/27/17 18:00 01/05/18 17:59 12/30/17 10:00 250 MLS/HR Gadobutrol (Gadavist) 11 mmol UD PRN IV 12/28/17 18:15 01/01/18 18:14 Impression 37 year old with MS after viral illness Plan 1. MRI with no acute findings 2. ID consult - recommend Valtrex 1g po TID x 7 days 3. CSF WBC 51, protein 77.8 no growth to date on cultures 4. EEG pending 5. 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
[2017-12-30 15:39] VITALS: BP 132/81; PULSE 77; TEMP 36.7; O2SAT 98
--- NOTE | 2017-12-30 16:34 | Progress Note ---
Internal Med Progress Note Date of Service: Dec 30, 2017. Provider Documentation: Subjective: Patient ambulating and speaking in full sentences Physical Exam General: no acute distress, calm, cooperative on exam Neuro: awake and alert and oriented, motor strength intact Heart: regular rate Lungs: CTABL, no wheezing Abdomen: soft, nontender, + bowel sounds Extremities: no edema ASSESSMENT & PLAN: Patient found to have evidence of meningitis/encephalitis with elevated WBC in CSF on Lumbar Puncture which as per neurology and infectious disease consultation that studies are consistent with viral encephalitis Presentation symptoms significant for aphasia and confusion which has resolved No acute intracranial abnormality on admission CT head, normal MRI results on 10/05 During this hospital stay, patient have been treated with Acyclovir, Vancomycin , and Ceftriaxone Infectious disease recommended that Maintain acyclovir pending HSV PCR of CSF, however CSF has returned without HSV However, patient will be discharged with prescription for Valacyclovir in case the viral encephalitis was caused by HSV and to complete the therapy The CSF lyme test is still pending EEG performed on discharge day is normal as per neurology service review Discharge instructions 01/02/2018 11:00 AM Shorty Be MD [facility] for follow up of symptoms [facility] appointment line [phone] was called on scheduling follow up appointment with Dr. Morales from Neurology service for neurology clinic follow up appointment Vital Signs: Date Time Temp Pulse Resp B/P (MAP) Pulse Ox O2 Delivery O2 Flow Rate FiO2 12/30/17 15:39 36.7 77 18 132/81 (98) 98 Room Air 12/30/17 08:00 Room Air 12/30/17 07:21 36.5 67 20 116/68 (84) 99 BiPAP 12/30/17 00:00 Room Air 12/29/17 23:28 37.1 82 18 144/87 (106) 97 Room Air Lab Results: Results Past 24 Hours Test 12/30/17 06:51 Range/Units White Blood Count 4.85 4.8-10.8 K/uL Red Blood Count 4.26 4.7-6.1 M/uL Hemoglobin 13.1 14.0-18.0 g/dL Hematocrit 37.6 42-52 % Mean Corpuscular Volume 88.3 80-100 fL Mean Corpuscular Hemoglobin 30.8 25-34 pg Mean Corpuscular Hemoglobin Concent 34.8 32-36 g/dl Platelet Count 161 130-400 K/uL Mean Platelet Volume 10.3 7.4-10.4 fL Neutrophils (%) (Auto) 53.2 % Lymphocytes (%) (Auto) 32.0 % Monocytes (%) (Auto) 9.9 % Eosinophils (%) (Auto) 4.1 % Basophils (%) (Auto) 0.2 % Neutrophils # (Auto) 2.58 1.4-6.5 K/uL Lymphocytes # (Auto) 1.55 1.2-3.4 K/uL Monocytes # (Auto) 0.48 0.11-0.59 K/uL Eosinophils # (Auto) 0.20 0-0.5 K/uL Basophils # (Auto) 0.01 0-0.2 K/uL RDW Standard Deviation 39.4 36.4-46.3 fL RDW Coefficient of Variation 12.3 11.5-14.5 % Immature Granulocyte % (Auto) 0.6 % Immature Granulocyte # (Auto) 0.03 0.00-0.02 K/uL Sodium Level 140 136-145 mmol/L Potassium Level 3.8 3.5-5.1 mmol/L Chloride Level 106 98-107 mmol/L Carbon Dioxide Level 26 21-32 mmol/L Anion Gap 8.0 3-11 mmol/L Blood Urea Nitrogen 10 7-18 mg/dl Creatinine 1.08 0.60-1.40 mg/dl Est Creatinine Clear Calc Drug Dose 123.3 ml/min Estimated GFR () 101.8 Estimated GFR (Non- 87.8 BUN/Creatinine Ratio 8.8 10-20 Random Glucose 97 70-99 mg/dl Calcium Level 8.5 8.5-10.1 mg/dl
[2017-12-30] MEDS ORDERED: ASPEC81 PO (16:43)
[2017-12-30] MEDS ORDERED: VALA1TAB31 PO (16:45)
--- NOTE | 2017-12-30 16:49 | Discharge Instructions ---
Discharge Instructions Date of Service Dec 30, 2017. Admission Reason for Admission: Altered Mental Status Discharge Discharge Diagnosis / Problem: Encephalitis / Encephalopathy / Aphasia / Acute Kidney Injury Discharge Goals Goal(s): Improve function Activity Recommendations Activity Limitations: per Instructions/Follow-up section Shower/Bathe: no limitations . Instructions / Follow-Up Instructions / Follow-Up Patient found to have evidence of meningitis/encephalitis with elevated WBC in CSF on Lumbar Puncture which as per neurology and infectious disease consultation that studies are consistent with viral encephalitis Presentation symptoms significant for aphasia and confusion which has resolved No acute intracranial abnormality on admission CT head, normal MRI results on 10/05 During this hospital stay, patient have been treated with Acyclovir, Vancomycin , and Ceftriaxone Infectious disease recommended that Maintain acyclovir pending HSV PCR of CSF, however CSF has returned without HSV However, patient will be discharged with prescription for Valacyclovir in case the viral encephalitis was caused by HSV and to complete the therapy The CSF lyme test is still pending EEG performed on discharge day is normal as per neurology service review Discharge instructions 01/02/2018 11:00 AM Shorty Be MD [facility] for follow up of symptoms [facility] appointment line [phone] was called on scheduling follow up appointment with Dr. Morales from Neurology service for neurology clinic follow up appointment Current Hospital Diet Patient's current hospital diet: Regular Diet Discharge Diet Recommended Diet: Regular Diet Pending Studies Studies pending at discharge: yes List of pending studies: CSF lyme Laboratory Results 12/30/17 06:51 Red Blood Count 4.26, Mean Corpuscular Volume 88.3, Mean Corpuscular Hemoglobin 30.8, Mean Corpuscular Hemoglobin Concent 34.8, Mean Platelet Volume 10.3, Neutrophils (%) (Auto) 53.2, Lymphocytes (%) (Auto) 32.0, Monocytes (%) (Auto) 9.9, Eosinophils (%) (Auto) 4.1, Basophils (%) (Auto) 0.2, Neutrophils # (Auto) 2.58, Lymphocytes # (Auto) 1.55, Monocytes # (Auto) 0.48, Eosinophils # (Auto) 0.20, Basophils # (Auto) 0.01 12/30/17 06:51 Test 12/26/17 21:33 12/26/17 22:35 12/26/17 22:48 12/26/17 22:58 Prothrombin Time 10.8 SECONDS (9.0-12.0) Prothromb Time International Ratio 1.0 (0.9-1.1) Activated Partial Thromboplast Time 27.7 SECONDS (21.0-31.0) Partial Thromboplastin Ratio 1.1 Total Bilirubin 1.5 mg/dl (0.2-1) Direct Bilirubin 0.2 mg/dl (0-0.2) Aspartate Amino Transf (AST/SGOT) 76 U/L (15-37) Alanine Aminotransferase (ALT/SGPT) 130 U/L (12-78) Alkaline Phosphatase 77 U/L (45-117) Total Creatine Kinase 109 U/L (39-308) Creatine Kinase MB < 0.5 ng/ml (0.5-3.6) Total Protein 9.7 gm/dl (6.4-8.2) Albumin 4.4 gm/dl (3.4-5.0) Lipase 146 U/L (73-393) Salicylates Level < 1.7 mg/dl (2.8-20) Acetaminophen Level < 2 ug/ml (10-30) Creatine Kinase MB Ratio (0-3.0) Influenza Type A (RT-PCR) Neg for Influ A (NEG) Influenza Type B (RT-PCR) Neg for Influ B (NEG) Influenza Type A Antigen Neg for Influ A (NEG) Influenza Type B Antigen Neg for Influ B (NEG) Test 12/26/17 22:59 12/26/17 23:00 12/26/17 23:17 12/27/17 00:00 Bedside Glucose 110 mg/dl (70-99) Ethyl Alcohol mg/dL < 3.0 mg/dl (0-3) Bedside Lactic Acid Venous 1.84 mmol/L (0.90-1.70) Bedside Troponin I < 0.030 ng/ml (0-0.045) Herpes Virus Source CSF Herpes Simplex Virus I DNA (PCR) Not Detected (Not Detected) Herpes Simplex Virus II DNA (PCR) Not Detected (Not Detected) Test 12/27/17 05:42 12/27/17 11:20 12/28/17 07:23 12/29/17 13:39 Urine Color DK YELLOW Urine Appearance CLOUDY (CLEAR) Urine pH 5.0 (4.5-7.5) Urine Specific Dawson 1.028 (1.000-1.030) Urine Protein NEG (NEG) Urine Glucose (UA) NEG (NEG) Urine Ketones NEG (NEG) Urine Occult Blood NEG (NEG) Urine Nitrite NEG (NEG) Urine Bilirubin NEG (NEG) Urine Urobilinogen NEG (NEG) Urine Leukocyte Esterase NEG (NEG) Urine WBC (Auto) 1-5 /hpf (0-5) Urine RBC (Auto) 0-4 /hpf (0-4) Urine Hyaline Casts (Auto) 1-5 /lpf (0-5) Urine Epithelial Cells (Auto) 0-5 /lpf (0-5) Urine Bacteria (Auto) NEG (NEG) Urine Opiates Screen NEG (NEG) Urine Methadone, Qualitative NEG (NEG) Urine Barbiturates NEG (NEG) Urine Phencyclidine (PCP) Level NEG (NEG) Ur Amphetamine/Methamphetamine NEG (NEG) MDMA (Ecstasy) Screen NEG (NEG) Urine Hydroxyalprazolam Confirm NEGATIVE NG/ML (CUTOFF=25) Urine Benzodiazepines Screen POS (NEG) 7-Amino Clonazepam Level NEGATIVE NG/ML (CUTOFF=25) Urine Nordiazepam Confirmation NEGATIVE NG/ML (CUTOFF=50) Urine Hydroxyethylflurazepam Level NEGATIVE NG/ML (CUTOFF=50) Urine Lorazepam (GC/MS) 410 NG/ML (CUTOFF=50) Urine Oxazepam Confirm (GC/MS) NEGATIVE NG/ML (CUTOFF=50) Urine Temazepam Confirmation NEGATIVE NG/ML (CUTOFF=50) Urine Hydroxytriazolam Confirmation NEGATIVE NG/ML (CUTOFF=50) Urine Hydroxymidazolam Confirmation >2000 NG/ML (CUTOFF=50) Urine Cocaine Metabolite NEG (NEG) Urine Marijuana (THC) NEG (NEG) CSF Color COLORLESS CSF Appearance CLEAR CSF WBC 51 /uL (0-5) CSF RBC 0 /uL (0) CSF Polynuclear WBCs 0.0 % CSF Mononuclear WBCs 100.0 % CSF Xanthrochromic NO XANTHOCHROMIA CSF Cell Count Tube # 3 CSF Chemistry Tube # 1 CSF Glucose 66 mg/dl (40-70) CSF Lactic Acid 1.6 mmol/L (0.6-2.2) CSF Total Protein 77.8 mg/dl (15.0-45.0) Triglycerides Level 124 mg/dl (0-150) Cholesterol Level 156 mg/dl (0-200) HDL Cholesterol 26 mg/dl LDL Cholesterol, Calculated 105 mg/dl VLDL Cholesterol, Calculated 25 mg/dl Cholesterol/HDL Ratio 6.0 Vancomycin Level Trough 17.0 mcg/ml (SEE COMMENT) Test 12/30/17 06:51 White Blood Count 4.85 K/uL (4.8-10.8) Red Blood Count 4.26 M/uL (4.7-6.1) Hemoglobin 13.1 g/dL (14.0-18.0) Hematocrit 37.6 % (42-52) Mean Corpuscular Volume 88.3 fL (80-100) Mean Corpuscular Hemoglobin 30.8 pg (25-34) Mean Corpuscular Hemoglobin Concent 34.8 g/dl (32-36) Platelet Count 161 K/uL (130-400) Mean Platelet Volume 10.3 fL (7.4-10.4) Neutrophils (%) (Auto) 53.2 % Lymphocytes (%) (Auto) 32.0 % Monocytes (%) (Auto) 9.9 % Eosinophils (%) (Auto) 4.1 % Basophils (%) (Auto) 0.2 % Neutrophils # (Auto) 2.58 K/uL (1.4-6.5) Lymphocytes # (Auto) 1.55 K/uL (1.2-3.4) Monocytes # (Auto) 0.48 K/uL (0.11-0.59) Eosinophils # (Auto) 0.20 K/uL (0-0.5) Basophils # (Auto) 0.01 K/uL (0-0.2) RDW Standard Deviation 39.4 fL (36.4-46.3) RDW Coefficient of Variation 12.3 % (11.5-14.5) Immature Granulocyte % (Auto) 0.6 % Immature Granulocyte # (Auto) 0.03 K/uL (0.00-0.02) Anion Gap 8.0 mmol/L (3-11) Est Creatinine Clear Calc Drug Dose 123.3 ml/min Estimated GFR () 101.8 Estimated GFR (Non- 87.8 BUN/Creatinine Ratio 8.8 (10-20) Calcium Level 8.5 mg/dl (8.5-10.1) Date/Time Source Procedure Growth Status 12/26/17 22:59 Blood Blood Culture - Preliminary NO GROWTH TO DATE. Resulted 12/27/17 11:20 Cerebral Spinal Fluid Gram Stain - Final Complete 12/27/17 11:20 Cerebral Spinal Fluid CSF Culture - Final NO GROWTH Complete Lipid Panel Test 12/28/17 07:23 Range/Units Triglycerides Level 124 0-150 mg/dl Cholesterol Level 156 0-200 mg/dl HDL Cholesterol 26 mg/dl Cholesterol/HDL Ratio 6.0 LDL Cholesterol, Calculated 105 mg/dl Medical Emergencies . Who to Call and When: Medical Emergencies: If at any time you feel your situation is an emergency, please call 911 immediately. . Non-Emergent Contact Non-Emergency issues call your: Primary Care Provider . . "Provider Documentation" section prepared by Han Maharaj. . VTE Core Measure Inpt VTE Proph given/why not?: SCD's
--- NOTE | 2017-12-30 16:52 | Discharge Summary ---
Discharge Summary Date of Service Dec 30, 2017. Discharge Summary Admission Date: Dec 27, 2017 at 03:44 Discharge Date: Dec 30, 2017 Discharge Disposition: Home Principal Diagnosis: Encephalitis / Encephalopathy / Aphasia / Acute Kidney Injury Medication Reconciliation New Medications: Valacyclovir Hcl (Valtrex) 1 Gm Tab 1 TAB PO TID for 7 Days, #21 TAB Aspirin (Aspirin EC Low Dose) 81 Mg Ectab 81 MG PO QAM for 30 Days, #30 Continued Medications: Allopurinol (Zyloprim) 100 Mg Tab 100 MG PO DAILY, TAB Discontinued Medications: [id number]-Mm W/ Apap (Tylenol Cold & Flu Severe) 1 Tab Tab Unknown Dose PO Admission Information HPI (per Admitting provider): 37 yo M with AMS presents with who told ER staff that he was acting funny and she knows he was taking Tylenol Cold And flu for a recent cold. The states that she efound him lying in hteir daughter's bed when she got home from work. She states that he was sick with the flu for the last week but that he was normal yesterdya. She reported weakness, fever and cough. She reported to staff that he had no falls at home, no headache and no neck pain. The patient was more calm when I saw him after some Ativan and Versed in preparation for an MRI that was unsuccessful. He was unable to get a history from because of altered mental status and inability to follow instruction. When the patient arrived in the ER he wsa thought to have some expressive aphasia so a stroke alert was called by the ER staff. A CT head was negative for acute IC abnormality. Labwork revealed a mild LUZ ELENA wtih creat around 1.4 and baseline around 0.9. No TPA was indicated per the Neurologist, however, he was sent for an MRI that was unable to be completed because the patient was too combative and agitated. With the personality changes, there was some concern for possible encephalitis, however, the ER providers were more convinced this was similar to a dextromethorphan overdose. Empiric coverage with Acyclovir and Ceftriaxone was started in the ER. Physical Exam (per Admitting): General Appearance: no apparent distress, + obese, + pertinent finding ( very limited physical as patient unable to follow instruction. ) Head: normocephalic, atraumatic Eyes: normal inspection, PERRL, sclerae normal ENT: hearing grossly normal, + pertinent finding (pt refused to open mouth) Neck: supple, trachea midline Respiratory/Chest: lungs clear, normal breath sounds, no respiratory distress, no accessory muscle use Cardiovascular: no edema, no gallop, no JVD, no murmur, normal peripheral pulses, + tachycardia Abdomen/GI: normal bowel sounds, non tender, soft Extremities/Musculoskelatal: normal inspection, normal range of motion, + pertinent finding (able to moves arms, legs, hands and feet symmetrically) Neurologic/Psych: alert, + pertinent finding (awake with some word finding difficulty and babbling. Stares ahead and answers questions with answers that don't make sense. Knows name and that he is in the hospital but otherwise is disoriented. Combative.) Skin: normal color, warm/dry Hospital Course Patient found to have evidence of meningitis/encephalitis with elevated WBC in CSF on Lumbar Puncture which as per neurology and infectious disease consultation that studies are consistent with viral encephalitis Presentation symptoms significant for aphasia and confusion which has resolved No acute intracranial abnormality on admission CT head, normal MRI results on 10/05 During this hospital stay, patient have been treated with Acyclovir, Vancomycin , and Ceftriaxone Infectious disease recommended that Maintain acyclovir pending HSV PCR of CSF, however CSF has returned without HSV However, patient will be discharged with prescription for Valacyclovir in case the viral encephalitis was caused by HSV and to complete the therapy The CSF lyme test is still pending EEG performed on discharge day is normal as per neurology service review Discharge instructions 01/02/2018 11:00 AM Shorty Be MD [facility] for follow up of symptoms [facility] appointment line [phone] was called on scheduling follow up appointment with Dr. Morales from Neurology service for neurology clinic follow up appointment Total time spent on discharge = 60 minutes This includes examination of the patient, discharge planning, medication reconciliation, and communication with other providers. Discharge Instructions see above
[2017-12-30 17:15] VITALS: BP 132/81; PULSE 77; TEMP 36.7; O2SAT 98
--- NOTE | 2017-12-30 19:16 | ELECTROENCEPHALOGRAPH REPORT ---
CLINICAL DIAGNOSIS: Probable viral encephalitis with transient aphasia, resolved. ELECTROENCEPHALOGRAM DIAGNOSIS: Essentially normal during wakefulness. DESCRIPTION OF TRACING: This EEG was done as a bedside recording with simultaneous video analysis of patient's movement and behavior. Hyperventilation was performed. Drowsiness and light sleep were not obtained. Under these conditions, there is evidence for a normal background rhythm in the alpha range of up to 10 Hz of maximum frequency and 30 microvolts of maximum amplitude. This is maximum in posterior head regions and bilaterally symmetrical. Polymorphic mid frequency theta activity is seen over all head regions without clear focal or regional predominance. Anterior head region maximum bilaterally symmetrical low voltage fast activity in the beta range is present. At no time during the waking tracing is there evidence for potentially epileptogenic activity in the form of polyspike or spike wave bursts, focal sharp waves or focal spikes. INTERPRETATION: This EEG is essentially normal during wakefulness without evidence for focal or generalized encephalopathy and without evidence for potentially epileptogenic activity.
--- NOTE | 2018-01-01 10:02 | EDITING REQUIRED CODING QUERY ---
PRESENT ON ADMISSION QUERY To promote full compliance with coding requirements relating to pateint care, physician participation is requested in all cases of support coordinator uncertainty. Please assist us with the question(s) below: Please place an X within the parenthesis (x). The following diagnosis(es) listed in this patient's medical record require physician assistance to determine if they were present on admission (POA) or not. Please advise for each diagnosis whether it was present on admission, not present on admission, or if it was clinically undetermined. 1. Encephalopathy - documented on the Discharge Summary (x ) Present On Admission ( ) Not Present On Admission ( ) Clinically Undetermined Thank you Pat Gray *Definition of the present on admission (POA)-Present on admission is defined as present at the time the order for inpatient admission occurs. Conditions that develop during an outpatient encounter prior to a written order for inpatient admission (including emergency department, observation, or outpatient surgery) are considered present on admission.
== END 2017-12-30 17:43 | disposition home or self-care (01) | DRG 97 ==
LOC: EDBD 21:58 → C.EDA 22:00 → C.2T 12-27 03:44 → ENRESERV 12-27 04:13 → CANRESERV 12-27 04:13 → ENRESERV 12-27 04:16 → CANRESERV 12-27 05:37 → ENRESERV 12-27 05:37 → EDBEDREQ 12-27 07:08 → ENRESERV 12-27 07:30 → C.MS4W 12-28 11:02
PROVIDERS: ADMIT Hospitalist; ATTEND Hospitalist
PROC: 009U3ZX Drainage of Spinal Canal, Percutaneous Approach, Diagnostic (ICD-10-PCS; principal; 2017-12-27)
DX: A86 Unspecified viral encephalitis (principal); G93.40 Encephalopathy, unspecified; R47.01 Aphasia; N17.9 Acute kidney failure, unspecified; R29.702 NIHSS score 2; M10.9 Gout, unspecified; G47.33 Obstructive sleep apnea (adult) (pediatric); Z79.899 Other long term (current) drug therapy; Z88.0 Allergy status to penicillin